=== PATIENT | male | born 1940 | race Caucasian/White ===

== ENCOUNTER → 2017-11-13 11:11 | Outpatient (POV) | payer MEDICARE, SELFPAY | PROVIDERS: Visit Provider Internal Medicine | DX: Z00.00 Encounter for general adult medical examination without abnormal findings (principal) ==

== ENCOUNTER → 2017-11-28 09:24 | Outpatient (CLI) | payer MEDICARE, SELFPAY ==
--- NOTE | 2017-11-28 09:28 | US_ITS ---
US aorta HISTORY: ITS.REASON: ABDOMINAL AORTIC ANEURYSM W/O RUPTURE COMPARISON: 10/17/2016 FINDINGS: Local visible dilatation once again noted involving the lower abdominal aorta measuring approximately 3.7 x 3.2 cm not significantly changed. Proximal common iliacs are unremarkable. IMPRESSION: No change 3.7 x 3.2 cm infrarenal abdominal aortic aneurysm
== END ==
PROVIDERS: PCP Internal Medicine; Visit Provider Internal Medicine
DX: I71.4 Abdominal aortic aneurysm, without rupture (principal); J44.9 Chronic obstructive pulmonary disease, unspecified; R06.02 Shortness of breath
CPT/HCPCS: 76770; 94010

== ENCOUNTER → 2017-12-17 09:20 | Outpatient (CLI) | payer MEDICARE, SELFPAY ==
[2017-12-17 16:49] LABS: Alanine Aminotransferase 31 U/L (12-78); Albumin Level 3.7 gm/dL (3.4-5.0); Albumin/Globulin Ratio 1.5 (1.1-1.8); Alkaline Phosphatase 83 U/L (46-116); Anion Gap 14.7 mEq/L (5-15); Bilirubin,Total 0.2 mg/dL (0.2-1.0); Blood Urea Nitrogen 23 mg/dL (7-18); Calcium 8.9 mg/dL (8.5-10.1); Carbon Dioxide 22 mmol/L (21.0-32.0); Chloride 107 mmol/L (98-107); Cholesterol 125 mg/dL (140-200); Creatinine,Serum 1.19 mg/dL (0.70-1.30); Estimated Glomerular Filt Rate 59 ml/min (>60); GFR (African American) 71 ML/MIN (>60); Globulin 2.5 gm/dl (1.3-3.2); Glucose 123 mg/dL (74-106); HDL Cholesterol 42 mg/dL (27-67); LDL Cholesterol 52 mg/dL (0-130); Sodium 139 mmol/L (136-145); Total Protein,Serum 6.2 gm/dL (6.4-8.2); Triglycerides 156 mg/dL (30-200); VLDL Cholesterol 31 mg/dL (0-40)
[2017-12-17 16:55] LABS: Aspartate Amino Transferase 26 U/L (15-37); Potassium 4.7 mmoL/L (3.5-5.1)
== END ==
PROVIDERS: Visit Provider Internal Medicine
DX: I25.10 Atherosclerotic heart disease of native coronary artery without angina pectoris (principal); I10 Essential (primary) hypertension; E11.59 Type 2 diabetes mellitus with other circulatory complications
CPT/HCPCS: 36415; 80053; 80061

== ENCOUNTER → 2018-05-21 09:51 | Outpatient (POV) | payer MEDICARE, SELFPAY | PROVIDERS: PCP Internal Medicine; Visit Provider Internal Medicine | DX: Z00.00 Encounter for general adult medical examination without abnormal findings (principal) ==

== ENCOUNTER → 2018-06-17 10:37 | Outpatient (CLI) | payer MEDICARE, SELFPAY ==
[2018-06-17 12:20] LABS: Alanine Aminotransferase 29 U/L (12-78); Albumin Level 4.1 gm/dL (3.4-5.0); Albumin/Globulin Ratio 1.5 (1.1-1.8); Alkaline Phosphatase 67 U/L (46-116); Bilirubin,Total 0.5 mg/dL (0.2-1.0); Blood Urea Nitrogen 31 mg/dL (7-18); Calcium 8.9 mg/dL (8.5-10.1); Carbon Dioxide 26 mmol/L (21.0-32.0); Chloride 107 mmol/L (98-107); Cholesterol 125 mg/dL (140-200); Creatinine,Serum 1.44 mg/dL (0.70-1.30); Estimated Glomerular Filt Rate 47 ml/min (>60); GFR (African American) 57 ML/MIN (>60); Globulin 2.7 gm/dl (1.3-3.2); Glucose 83 mg/dL (74-106); HDL Cholesterol 42 mg/dL (27-67); LDL Cholesterol 62 mg/dL (0-130); Prostate Specific Ag, Diagnost 1.71 ng/mL (0.0-4.0); Sodium 141 mmol/L (136-145); Total Protein,Serum 6.8 gm/dL (6.4-8.2); Triglycerides 106 mg/dL (30-200); VLDL Cholesterol 21 mg/dL (0-40)
[2018-06-17 12:21] LABS: Aspartate Amino Transferase 17 U/L (15-37)
[2018-06-18 13:21] LABS: Microalbumin, Urine 6.3 ug/mL (Not Estab.)
== END ==
PROVIDERS: Visit Provider Internal Medicine
DX: E11.59 Type 2 diabetes mellitus with other circulatory complications (principal); E11.42 Type 2 diabetes mellitus with diabetic polyneuropathy; I73.9 Peripheral vascular disease, unspecified; J44.9 Chronic obstructive pulmonary disease, unspecified; I10 Essential (primary) hypertension; E78.5 Hyperlipidemia, unspecified; R39.12 Poor urinary stream
CPT/HCPCS: 36415; 80053; 80061; 82043; 83036; 84153

== ENCOUNTER → 2018-11-25 08:51 | Outpatient (POV) | payer MEDICARE, SELFPAY | PROVIDERS: Visit Provider Internal Medicine | DX: Z00.00 Encounter for general adult medical examination without abnormal findings (principal) ==

== ENCOUNTER → 2018-12-27 09:14 | Outpatient (CLI) | payer MEDICARE, SELFPAY ==
--- NOTE | 2018-12-27 09:18 | US_ITS ---
US aorta HISTORY: Follow-up aneurysm ITS.REASON: ANEURYSM COMPARISON: 11/28/2017 FINDINGS: Study is somewhat limited due to overlying bowel gas. There is fusiform aneurysmal dilatation of the infrarenal abdominal aorta measuring up to 4 cm in AP dimension. The proximal common iliacs are unremarkable. IMPRESSION: No significant change lower, aortic aneurysm measuring 4 cm in AP dimension
== END ==
PROVIDERS: PCP Internal Medicine; Visit Provider Internal Medicine
DX: I71.4 Abdominal aortic aneurysm, without rupture (principal)
CPT/HCPCS: 76770

== ENCOUNTER → 2019-03-04 11:40 | Outpatient (POV) | payer MEDICARE, SELFPAY ==
--- NOTE | 2019-03-04 14:36 | XR_ITS ---
XR chest 2V HISTORY: ITS.REASON: DYSPNEA,OBSTRUCTIVE CHRONIC BRONCHITIS ORDERING PHYSICIAN: Aditya Maurice MD PATIENT AGE: 78 years COMPARISON: 01/05/2015 FINDINGS: The cardiomediastinal silhouette and pulmonary vascularity are within normal limits. Changes of COPD with hyperinflation and attenuation of the peripheral pulmonary vessels. Chronic changes are present in the lung bases.. Patchy infiltrate present in the lingula No acute bony abnormalities. IMPRESSION: COPD with infiltrate within the lingula
== END ==
LOC: SC 11:41 → RAD 14:28
PROVIDERS: PCP Internal Medicine; Visit Provider Internal Medicine
DX: R06.09 Other forms of dyspnea (principal); J44.9 Chronic obstructive pulmonary disease, unspecified
CPT/HCPCS: 71046

== ENCOUNTER → 2019-03-19 07:23 | Outpatient (CLI) | payer MEDICARE, SELFPAY ==
--- NOTE | 2019-03-19 07:23 | CA_ITS ---
PROCEDURE: 2-D M-mode and color Doppler study INDICATIONS FOR THE TEST: Chest pain+ COPD+ Heart Murmur Tobacco SmokingEX Palpitations Fatigue Syncope Edema Hypertension+Diabetes Mellitus+ Rheumatic Fever SOB+RAMOS+Obesity+Hyperlipidemia+ Family History HD Additional History CAD,AAA, STENTS, GERD PATIENT INFORMATION HEIGHT: 66 WEIGHT:204 GENDER: Male B/P:129/73 2-D/M-MODE INTERPRETATION: 2-D MEASUREMENTS OBSERVED VALUES IN CMS Right Ventricular Dimension (RVDd) 2.7 Interventricular Septum (Thickness)(IVsd) 1.4 Left Ventricular Internal Dimensions(LVIDd) 4.0 Left Ventricular Posterior Wall (Thickness)(LVPWd) 1.0 Aortic Root 3.6 Aortic Cusp Separation 1.9 Left Atrial Dimensions (LAD) 3.7 2D 1. Left atrium is mildly enlarged, left ventricle is normal size, mild concentric left ventricular hypertrophy, visually estimated ejection fraction 55% with no regional wall motion abnormality. 2. The right atrium and right ventricle are mildly enlarged with normal contractility. 3. The aortic valve is minimally thickened and calcified. 4. The mitral and tricuspid valve leaflets are minimally thickened 5. The pulmonic valve is poorly visualized. 6. No significant pericardial effusion noted. DOPPLER INTERROGATION: Doppler interrogation of the aortic, mitral and tricuspid valvular presence of mild mitral and tricuspid regurgitation, calculated right ventricular systolic pressure is 44 mmHg consistent with moderate pulmonary hypertension. Grade 1 diastolic dysfunction seen with tissue Doppler evidence of raised left atrial pressure. CONCLUSION: 1. Mildly enlarged left atrium, normal left ventricular size, mild concentric left ventricular hypertrophy, visually estimated ejection fraction 55% with no regional wall motion abnormality, grade 1 diastolic dysfunction seen with tissue Doppler evidence of raised left atrial pressure. 2. Mildly enlarged right ventricle with normal contractility. 3. Mild mitral and tricuspid regurgitation. Calculated right ventricular systolic pressure is 44 mmHg consistent with moderate pulmonary hypertension. 4. No significant pericardial effusion noted.
--- NOTE | 2019-03-19 07:23 | NM_ITS ---
History:Chest pain, SOB, HTN, DM Procedure: Patient received a 0.4 mg of intravenous Lexiscan, resting heart rate 66 bpm, resting blood pressure 130/71, with Lexiscan maximum heart rate achieve was 84 bpm which is less than 85 % of the maximum predicted heart rate and blood pressure was 138/71. WIth Lexiscan patient denied any complaint of chest pain. Electrocardiogram: Resting electrocardiogram showed sinus rhythm, with Lexiscan there is less than 1.5mm ST segment depression noted from the baseline EKG. The EKG portion of the Lexiscan Myoview is nondiagnostic. Cardias Stress and Resting SPECT images: Cardias Stress and Resting SPECT images were obtained using technetium 99m Myoview 32.4 mCi stress and 10.43 mCi at rest. Gated SPECT further analysis of segmental wall motion and calculation of ejection fraction also done. Cardiac stress and resting SPECT show uniform myocardial activity without segmental perfusion abnormality , the computer derived ejection fraction is over 65% with no regional wall motion abnormality, right ventricle is normal size and contractility. Conclusion: 1. The EKG portion of the Lexiscan Myoview is nondiagnostic. 2. No scintigraphic evidence of reversible ischemia seen, computer derived ejection fraction is over 65% with no regional wall motion abnormality. Right ventricle is normal size and contractility.. 3. Normal Lexiscan Myoview study.
--- NOTE | 2019-03-19 07:37 | HMH.ITSHM ---
Current Home Medications as stated by this patient Aditya Romero or counter sales representative. []VITAMIN B UMEDLICINIUM TRAZODONE SIMVASTATIN SAXAGLIPTIN METOPROLOL METFORMIN LOSARTAN GLIPIZIDE FLUTICASONE DOXAZOSIN ASA ALBUTEROL ACETAMINOPHEN
== END ==
PROVIDERS: Visit Provider Internal Medicine
DX: E11.69 Type 2 diabetes mellitus with other specified complication (principal); E78.5 Hyperlipidemia, unspecified; I10 Essential (primary) hypertension; I25.10 Atherosclerotic heart disease of native coronary artery without angina pectoris; I71.4 Abdominal aortic aneurysm, without rupture; K21.9 Gastro-esophageal reflux disease without esophagitis; R06.09 Other forms of dyspnea; R07.9 Chest pain, unspecified; Z79.4 Long term (current) use of insulin; Z95.5 Presence of coronary angioplasty implant and graft
CPT/HCPCS: 78452; 93017; 93306; A9502; J2785

== ENCOUNTER → 2019-03-20 08:03 | Outpatient (CLI) | payer MEDICARE, SELFPAY ==
--- NOTE | 2019-03-20 08:06 | US_ITS ---
US aorta HISTORY: Follow-up aortic aneurysm ITS.REASON: chest pain COMPARISON: 12/27/2018 FINDINGS: There is dilatation of the abdominal aorta measuring approximately 3.6 cm in AP dimension. This was similar compared to the previous exam. The right common iliac is slightly prominent at 1.6 cm. IMPRESSION: No change in the fusiform abdominal aortic aneurysm at approximately 3.6 cm
== END ==
PROVIDERS: PCP Internal Medicine; Visit Provider Internal Medicine
DX: E11.69 Type 2 diabetes mellitus with other specified complication (principal); E78.5 Hyperlipidemia, unspecified; I10 Essential (primary) hypertension; I25.10 Atherosclerotic heart disease of native coronary artery without angina pectoris; I71.4 Abdominal aortic aneurysm, without rupture; K21.9 Gastro-esophageal reflux disease without esophagitis; R06.09 Other forms of dyspnea; R07.9 Chest pain, unspecified; Z79.4 Long term (current) use of insulin
CPT/HCPCS: 76770

== ENCOUNTER → 2019-04-02 14:06 | Outpatient (CLI) | payer MEDICARE, SELFPAY ==
--- NOTE | 2019-04-02 14:07 | US_ITS ---
APPROVED REPORT Exam Type: Lower Extremity Segmental Pressures Loan Associate: Althea Lowery RVT Indications Claudication: Bilaterally CAD Risk Factors Hypertension CAD Hyperlipidemia Diabetes History of Smoking Pressures/Indices Right Indices Left Indices Brachial 112.00 mmHg Brachial 99.00 mmHg Low Thigh 112.00 mmHg 1.00 Low Thigh 125.00 mmHg 1.12 Calf 148.00 mmHg 1.32 Calf 132.00 mmHg 1.18 Ankle(PT) 124.00 mmHg 1.11 Ankle(PT) 128.00 mmHg 1.14 Ankle(DP) 127.00 mmHg 1.13 Ankle(DP) 144.00 mmHg 1.29 Digit 103.00 mmHg 0.92 Digit 80.00 mmHg 0.71 Findings RT CONY: 1.13 LT CONY:1.29 RT TBI:0.92 LT TBI:0.71 NORMAL PULSES JT NORMAL WAVEFORMS JT Electronically signed by : Lewis Jean Baptiste MD 04/03/2019 07:52:25
== END ==
PROVIDERS: PCP Internal Medicine; Visit Provider Urology
DX: I70.213 Atherosclerosis of native arteries of extremities with intermittent claudication, bilateral legs (principal)
CPT/HCPCS: 93923

== ENCOUNTER → 2019-04-16 10:56 | Outpatient (CLI) | payer MEDICARE, SELFPAY ==
[2019-04-16 12:08] LABS: Blood Urea Nitrogen 31 mg/dL (7-18); Calcium 9.2 mg/dL (8.5-10.1); Carbon Dioxide 28 mmol/L (21.0-32.0); Chloride 105 mmol/L (98-107); Creatinine,Serum 1.63 mg/dL (0.70-1.30); Estimated Glomerular Filt Rate 41 ml/min (>60); GFR (African American) 49 ML/MIN (>60); Glucose 188 mg/dL (74-106); Sodium 140 mmol/L (136-145)
== END ==
PROVIDERS: Visit Provider Urology
DX: I27.20 Pulmonary hypertension, unspecified (principal)
CPT/HCPCS: 36415; 80048

== ENCOUNTER → 2019-05-19 09:53 | Outpatient (CLI) | payer MEDICARE, SELFPAY ==
[2019-05-19 10:30] VITALS: PULSE 69; PULSE 73
== END ==
PROVIDERS: PCP Internal Medicine; Visit Provider Internal Medicine
DX: R06.09 Other forms of dyspnea (principal)
CPT/HCPCS: 94060; 94640; 94727; 94729

== ENCOUNTER 2019-06-12 15:00 | Outpatient (RCR) | payer MEDICARE, SELFPAY | END 2019-06-12 15:05 | disposition home or self-care (01) | LOC: PT 15:00 | PROVIDERS: PCP Internal Medicine; Visit Provider Orthopaedic Surgery | DX: M17.0 Bilateral primary osteoarthritis of knee (principal) | CPT/HCPCS: 97010; 97014; 97110; 97140; 97163; G0283 ==

== ENCOUNTER → 2019-06-30 08:29 | Outpatient (CLI) | payer MEDICARE, SELFPAY ==
[2019-06-30 10:38] LABS: Alanine Aminotransferase 26 U/L (12-78); Albumin Level 3.7 gm/dL (3.4-5.0); Albumin/Globulin Ratio 1.3 (1.1-1.8); Alkaline Phosphatase 72 U/L (46-116); Anion Gap 12.6 mEq/L (5-15); Aspartate Amino Transferase 19 U/L (15-37); Bilirubin,Total 0.5 mg/dL (0.2-1.0); Blood Urea Nitrogen 29 mg/dL (7-18); Calcium 8.7 mg/dL (8.5-10.1); Carbon Dioxide 29 mmol/L (21.0-32.0); Chloride 103 mmol/L (98-107); Chol/HDL Ratio 3.2 (1-3.5); Cholesterol 122 mg/dL (140-200); Creatinine,Serum 1.58 mg/dL (0.70-1.30); Estimated Glomerular Filt Rate 42 ml/min (>60); GFR (African American) 51 ML/MIN (>60); Globulin 2.8 gm/dl (1.3-3.2); Glucose 154 mg/dL (74-106); HDL Cholesterol 38 mg/dL (27-67); LDL Cholesterol 55 mg/dL (0-130); Potassium 4.6 mmoL/L (3.5-5.1); Sodium 140 mmol/L (136-145); Total Protein,Serum 6.5 gm/dL (6.4-8.2); Triglycerides 145 mg/dL (30-200); VLDL Cholesterol 29 mg/dL (0-40)
[2019-06-30 11:07] LABS: Hemoglobin A1C 8.3 % (0.0-7.0)
[2019-07-01 13:17] LABS: Microalbumin, Urine 4.6 ug/mL (Not Estab.)
== END ==
PROVIDERS: Visit Provider Internal Medicine
DX: E11.42 Type 2 diabetes mellitus with diabetic polyneuropathy (principal); E11.59 Type 2 diabetes mellitus with other circulatory complications; I10 Essential (primary) hypertension; E78.5 Hyperlipidemia, unspecified
CPT/HCPCS: 36415; 80053; 80061; 82043; 83036

== ENCOUNTER → 2020-01-12 08:15 | Outpatient (CLI) | payer MEDICARE, SELFPAY ==
[2020-01-12 11:36] LABS: Coronavirus 19 IgG Antibody Negative (Negative); Coronavirus 19 IgM Antibody Negative (Negative)
== END ==
PROVIDERS: Visit Provider Ophthalmology
DX: Z03.818 Encounter for observation for suspected exposure to other biological agents ruled out (principal)
CPT/HCPCS: 36415; 86328

== ENCOUNTER 2020-01-13 08:33 | Day surgery (SDC) | payer MEDICARE, SELFPAY ==
--- NOTE | 2020-01-07 11:05 | SUR.PREOP ---
01/07/2020 @ 1100--PHONE CALL MADE TO PATIENT. PATIENT UNDERSTANDS THAT LAB WORK AND COVID TESTING NEEDS TO BE COMPLETED BEFORE 1000 ON 01/12/2020. PATIENT UNDERSTANDS IF LAB WORK AND COVID-19 TESTS ARE NOT COMPLETED BY 12PM ON THAT DATE, THE SURGERY SCHEDULED WILL BE CANCELLED AND RESCHEDULED FOR ANOTHER TIME.
[2020-01-08 13:17] VITALS: BMI 31.9
[2020-01-13] VITALS (7 sets, daily range): BP systolic 133–152; BP diastolic 71–83; PULSE 61–70; RESP 18–22; TEMP 36.1–36.7; O2SAT 91–974
[2020-01-13 20:40] LABS: POC Glucose,Bedside 149 (70-110)
== END 2020-01-13 10:20 | disposition home or self-care (01) ==
LOC: OR 08:38
PROVIDERS: PCP Internal Medicine; Visit Provider Ophthalmology
DX: H25.813 Combined forms of age-related cataract, bilateral (principal); H02.839 Dermatochalasis of unspecified eye, unspecified eyelid; E11.9 Type 2 diabetes mellitus without complications; J44.9 Chronic obstructive pulmonary disease, unspecified; M19.90 Unspecified osteoarthritis, unspecified site; I10 Essential (primary) hypertension; E78.5 Hyperlipidemia, unspecified; Z79.82 Long term (current) use of aspirin; Z79.84 Long term (current) use of oral hypoglycemic drugs; Z79.51 Long term (current) use of inhaled steroids; Z79.899 Other long term (current) drug therapy
CPT/HCPCS: 66984; 82962; V2632

== ENCOUNTER 2020-05-12 17:52 | Emergency (ER) | payer MEDICARE, SELFPAY ==
[2020-05-12 17:52] VITALS: BP 161/79; PULSE 91; RESP 18; TEMP 36.8; O2SAT 97; BMI 35.2
[2020-05-12 18:01] VITALS: BP 123/85; PULSE 95; RESP 18; TEMP 36.8; O2SAT 93; BMI 35.4
--- NOTE | 2020-05-12 18:15 | HMH.EDUTC ---
[facility] [place] Disposition Clinical Impression: Shortness of breath, Blood in stool Disposition: Still a Patient Condition on Discharge: Fair Referrals: Humberto Salvador [Primary Care Provider] - Time of Disposition: 18:24 Medical Decision Making - Bautista Inquiry Pt receiving controlled substance: No Bautista was queried for this patient: No Vital Signs: 05/12/20 17:52 05/12/20 18:01 05/12/20 18:33 Temperature 98.2 F 98.2 F 99.0 F Temperature Source Oral Oral Oral Pulse Rate [Left Radial] 91 H 95 H 99 H Respiratory Rate 18 18 28 H Blood Pressure [Right Arm] 161/79 H 123/85 143/80 H Blood Pressure Mean [Right Arm] 106 97 101 Blood Pressure Source [Right Arm] Automatic Cuff Automatic Cuff Blood Pressure Position [Right Arm] Sitting Sitting 02 Sat by Pulse Oximetry 97 93 L 88 L Oxygen Delivery Method Room Air Room Air 05/12/20 19:45 Temperature Temperature Source Pulse Rate [Left Radial] 83 Respiratory Rate 18 Blood Pressure [Right Arm] 123/61 Blood Pressure Mean [Right Arm] 81 Blood Pressure Source [Right Arm] Blood Pressure Position [Right Arm] 02 Sat by Pulse Oximetry 94 L Oxygen Delivery Method Room Air - Lab Data Lab Results 05/12/20 18:40: WBC 6.2, RBC 4.63, Hgb 14.8, Hct 43.2, MCV 93.3, MCH 31.9 H, MCHC 34.2, RDW 13.7, Plt Count 131 L, MPV 8.1, Neut % (Auto) 71.3, Lymph % (Auto) 19.2, [place] % (Auto) 8.3, Eos % (Auto) 0.8, Baso % (Auto) 0.4, Neut # (Auto) 4.4, Lymph # (Auto) 1.2, [place] # (Auto) 0.5, Eos # (Auto) 0.1, Baso # (Auto) 0.0 05/12/20 18:40: Sodium 138, Potassium 4.4, Chloride 102, Carbon Dioxide 27, Anion Gap 13.4, BUN 19, Creatinine 1.10, Estimated Creat Clear 66, Estimated GFR 64, Est GFR ( Amer) 78, Glucose 308 H, Calcium 9.4, Total Bilirubin 0.4, AST 34, ALT 25, Alkaline Phosphatase 107, Troponin I < 0.01, Total Protein 7.1, Albumin 4.3, Globulin 2.8, Albumin/Globulin Ratio 1.5 05/12/20 18:40: Lactate 2.3 H 05/12/20 18:40: NT-Pro-B Natriuret Pep 49.8 05/12/20 18:40: SARS-CoV-2 IgG Ab (Rapid) Negative, SARS-CoV-2 IgM Ab (Rapid) Negative 05/12/20 19:10: Urine Color Yellow, Urine Appearance Clear, Urine pH 6.0, Ur Specific [place] 1.015, Urine Protein Negative, Urine Glucose (UA) 3+, Urine Ketones Negative, Urine Blood Negative, Urine Nitrate Negative, Urine Bilirubin Negative, Urine Urobilinogen 0.2, Ur Leukocyte Esterase Negative, Urine WBC 5-10, Ur Squamous Epith Cells 3-5, Urine Bacteria Trace Result diagrams: 05/12/20 18:40 05/12/20 18:40 Orders (Tests/Meds): ED MEDICATIONS Generic Name Dose Route Start Last Admin Trade Name Freq PRN Reason Stop Dose Admin Sodium Chloride 1,000 mls @ 999 mls/hr 05/12/20 20:15 05/12/20 20:15 Sod Chlor 0.9% 1000ml Bag IV 05/12/20 21:15 999 mls/hr .[id number] JAXSON Administration Discontinued Medications Generic Name Dose Route Start Last Admin Trade Name Freq PRN Reason Stop Dose Admin Albuterol/Ipratropium 3 ml 05/12/20 19:25 Duoneb 3ml Neb IH 05/12/20 19:26 ONCE ONE Ioversol 70 ml 05/12/20 20:19 05/12/20 20:21 Rad-Optiray 350 100ml Vial IV 05/12/20 20:20 70 ml ONCE ONE Administration Protocol Methylprednisolone Sodium Succinate 125 mg 05/12/20 19:25 05/12/20 19:35 Solu-Medrol 125mg/2ml Vial IV 05/12/20 19:26 125 mg ONCE ONE Administration Sodium Chloride 10 ml 05/12/20 20:19 05/12/20 20:21 Rad-Saline Flush 10ml Syringe IV 05/12/20 20:20 10 ml ONCE ONE Administration Sodium Chloride 40 ml 05/12/20 20:20 05/12/20 20:21 Rad-Ns 50ml Vial IV 05/12/20 20:21 40 ml ONCE ONE Administration ORDERS Category Date Time Status CT angio chest Stat Cat Scan 05/12/20 19:29 Taken XR chest 2V Stat Exams 05/12/20 18:29 Taken Troponin I Q3H Lab 05/12/20 21:30 Ordered Troponin I Q3H Lab 05/13/20 00:30 Ordered Blood Culture Stat Micro 05/12/20 18:40 Received ECG Request by /Loreto Stat Y 05/12/20 18:29 Ordered Medical Decision Narrative: Patient states that he cannot br
--- NOTE | 2020-05-12 18:29 | XR_ITS ---
PROCEDURE: XR CHEST 2V CLINICAL HISTORY: soa COMPARISON: CR CXR CHEST(2 VIEWS-NOT PORTABLE) from 01/05/[address] ANGIO CHEST from 05/12/2020 FINDINGS: The cardiomediastinal silhouette and pulmonary vascularity are within normal limits. There is vascular crowding in the lung bases with bibasilar atelectasis. Upper lobes are clear. Cannot exclude infiltrate in the left lung base. No acute bony abnormalities. IMPRESSION: Bibasilar atelectasis with possible left lower lobe infiltrate Dictated by: Lewis Jean Baptiste MD 05/13/2020 05:41 Lewis Jean Baptiste MD in [place] 05/13/2020 05:41
[2020-05-12 18:33] VITALS: BP 143/80; PULSE 99; RESP 28; TEMP 37.2; O2SAT 88; BMI 35.4
--- NOTE | 2020-05-12 18:39 | PC.NURSE ---
Pt stated that he has COPD but today he has been more short of breath than normal and he did not think he would make it through the night if he didn't come in . Pt also complains of blood in his stool and having black tarry stools. Pt states that his primary doctor told him that he needs to see a [employer]. Pt states that he has not followed up with Cardiology yet and is unsure why he needs to be seen.
[2020-05-12 18:54] LABS: Basophils % 0.4 % (0.1-2.0); Eosinophils # 0.1 K/mm3 (0.0-0.4); Eosinophils % 0.8 % (0.1-12.0); Hematocrit 43.2 % (42.0-52.0); Hemoglobin 14.8 g/dL (14.1-18.0); Lymphocytes # 1.2 K/mm3 (0.7-4.5); Lymphocytes % 19.2 % (10-50); Mean Corpuscular HGB Conc 34.2 g/dL (31.8-35.4); Mean Corpuscular Hemoglobin 31.9 pg (27.0-31.2); Mean Corpuscular Volume 93.3 fl (80-94); Mean Platelet Volume 8.1 fl (7.4-10.4); Monocytes # 0.5 K/mm3 (0.1-1.0); Monocytes % 8.3 % (1.7-9.3); Neutrophils # 4.4 K/mm3 (1.8-7.8); Neutrophils % 71.3 % (37.0-80.0); Platelet Count 131 K/mm3 (142-424); Red Blood Count 4.63 M/mm3 (4.60-6.20); Red Cell Distribution Width 13.7 % (11.5-17.5); White Blood Count 6.2 K/mm3 (4.8-10.8)
[2020-05-12 19:01] LABS: Lactic Acid 2.3 mmol/L (0.7-2.1)
[2020-05-12 19:09] LABS: Chloride 102 mmol/L (98-107); NT Pro Brain Natriuretic Pep. 49.8 pg/mL (0-450); Sodium 138 mmol/L (136-145)
[2020-05-12 19:10] LABS: Potassium 4.4 mmoL/L (3.5-5.1)
[2020-05-12 19:12] LABS: Alanine Aminotransferase 25 U/L (12-78); Albumin Level 4.3 g/dl (3.5-5.0); Albumin/Globulin Ratio 1.5 (1.1-1.8); Alkaline Phosphatase 107 U/L (38-126); Anion Gap 13.4 mEq/L (5-15); Aspartate Amino Transferase 34 U/L (17-59); Bilirubin,Total 0.4 mg/dl (0.2-1.3); Blood Urea Nitrogen 19 mg/dl (9-20); Carbon Dioxide 27 mmol/L (22.0-30.0); Creatinine Clearance Estimated 66 mL/min (50-200); Estimated Glomerular Filt Rate 64 ml/min (>60); GFR (African American) 78 ML/MIN (>60); Globulin 2.8 g/dL (1.3-3.2); Total Protein,Serum 7.1 g/dl (6.3-8.2)
[2020-05-12 19:13] LABS: Calcium 9.4 mg/dl (8.4-10.2); Glucose 308 mg/dl (74-100)
--- NOTE | 2020-05-12 19:17 | HMH.EDGENADL ---
ED Disposition Condition on Discharge: Good - Critical Care Critical Care Time: No <Richard Boyd - Last Filed: 05/12/20 20:04> <Brent English - Last Filed: 05/12/20 21:26> Clinical Impression: Shortness of breath, Blood in stool, Acute exacerbation of chronic obstructive airways disease Disposition: Left Against Medical Advice Instructions: DI for Chronic Obstructive Pulmonary Disease Additional Instructions: call pcp in am and recheck if needed Prescriptions: levoFLOXacin [Levaquin 500mg tab] 500 mg PO DAILY #7 tab [facility]: [facility] predniSONE [Prednisone 20mg Tab] 20 mg PO BID #10 tab [facility] Referrals: Humberto Salvador [Primary Care Provider] - Attestation: On 05/12/20, the high probability of a clinically significant, sudden or life threatening deterioration of the following system(s) required my full and direct attention, intervention and personal management. The time I documented below is in addition to time spent performing reported procedures but includes the following listed in this critical care notation. Medical Decision Making - Medical Records Medical records reviewed: Yes: I reviewed the patient's medical records. - Bautista Inquiry Pt receiving controlled substance: No - Lab Data Lab results reviewed: Yes: I reviewed the patient's lab results. Result diagrams: 05/12/20 18:40 05/12/20 18:40 - Radiology Data #1 Image(s): Chest Image Reviewed: Yes I reviewed the patient's radiology image <Richard Boyd - Last Filed: 05/12/20 20:04> - Lab Data Result diagrams: 05/12/20 18:40 05/12/20 18:40 - CT Data CT Scan: Chest Time Received: 21:[address] Reviewed: Yes: I have viewed the radiologist's interpretation Preliminary Findings: Abnormal (copd no pul emboli) <Brent English - Last Filed: 05/12/20 21:26> Vital Signs: 05/12/20 17:52 05/12/20 18:01 05/12/20 18:33 Temperature 98.2 F 98.2 F 99.0 F Temperature Source Oral Oral Oral Pulse Rate [Left Radial] 91 H 95 H 99 H Respiratory Rate 18 18 28 H Blood Pressure [Right Arm] 161/79 H 123/85 143/80 H Blood Pressure Mean [Right Arm] 106 97 101 Blood Pressure Source [Right Arm] Automatic Cuff Automatic Cuff Blood Pressure Position [Right Arm] Sitting Sitting 02 Sat by Pulse Oximetry 97 93 L 88 L Oxygen Delivery Method Room Air Room Air 05/12/20 19:45 Temperature Temperature Source Pulse Rate [Left Radial] 83 Respiratory Rate 18 Blood Pressure [Right Arm] 123/61 Blood Pressure Mean [Right Arm] 81 Blood Pressure Source [Right Arm] Blood Pressure Position [Right Arm] 02 Sat by Pulse Oximetry 94 L Oxygen Delivery Method Room Air - Lab Data Lab Results 05/12/20 18:40: WBC 6.2, RBC 4.63, Hgb 14.8, Hct 43.2, MCV 93.3, MCH 31.9 H, MCHC 34.2, RDW 13.7, Plt Count 131 L, MPV 8.1, Neut % (Auto) 71.3, Lymph % (Auto) 19.2, [place] % (Auto) 8.3, Eos % (Auto) 0.8, Baso % (Auto) 0.4, Neut # (Auto) 4.4, Lymph # (Auto) 1.2, [place] # (Auto) 0.5, Eos # (Auto) 0.1, Baso # (Auto) 0.0 05/12/20 18:40: Sodium 138, Potassium 4.4, Chloride 102, Carbon Dioxide 27, Anion Gap 13.4, BUN 19, Creatinine 1.10, Estimated Creat Clear 66, Estimated GFR 64, Est GFR ( Amer) 78, Glucose 308 H, Calcium 9.4, Total Bilirubin 0.4, AST 34, ALT 25, Alkaline Phosphatase 107, Troponin I < 0.01, Total Protein 7.1, Albumin 4.3, Globulin 2.8, Albumin/Globulin Ratio 1.5 05/12/20 18:40: Lactate 2.3 H 05/12/20 18:40: NT-Pro-B Natriuret Pep 49.8 05/12/20 18:40: SARS-CoV-2 IgG Ab (Rapid) Negative, SARS-CoV-2 IgM Ab (Rapid) Negative 05/12/20 19:10: Urine Color Yellow, Urine Appearance Clear, Urine pH 6.0, Ur Specific [place] 1.015, Urine Protein Negative, Urine Glucose (UA) 3+, Urine Ketones Negative, Urine Blood Negative, Urine Nitrate Negative, Urine Bilirubin Negative, Urine Urobilinogen 0.2, Ur Leukocyte Esterase Negative, Urine WBC 5-10, Ur Squamous Epith Cells 3-5, U
[2020-05-12 19:25] LABS: Troponin I < 0.01 ng/ml (0.00-0.034)
--- NOTE | 2020-05-12 19:29 | CT_ITS ---
PROCEDURE: CT ANGIO CHEST CLINCIAL INDICATION: pe Shortness of breath, former smoker, heart disease COMPARISON: CT ABDPELW/O CT ABD PELVIS W/O CONTRAST from 01/18/2015 TECHNIQUE: IV Contrast: 70ML OPTIRAY 350 Axial images obtained with sagittal and coronal reformats. All CT scans at the facility use one or more dose reduction, viz: automated exposure control, ma/kV adjustment per patient size (including targeted exams where dose is matched to indication, i.e. head), or iterative reconstruction technique. FINDINGS: HEART AND MEDIASTINAL STRUCTURES: There is sub optimal bolus timing. There is intense enhancement of the aorta with less than optimal enhancement of the pulmonary arteries. No large central pulmonary embolus is evident. Peripheral pulmonary artery evaluation is limited. No evidence of aortic aneurysm or dissection. There is mild ectasia and tortuosity of the descending thoracic aorta. Atheromatous changes are present involving the aorta. Coronary artery calcifications and/or stents are noted. There are mildly prominent mediastinal lymph nodes. LUNGS AND PLEURAL SPACES: Centrilobular emphysema with scattered areas of scarring. Parenchymal opacity is present in the right perihilar region may be due to an area of scarring or patchy infiltrate. Scarring is present in the right middle lobe somewhat more prominent when compared to the previous exam with some nodularity. This however is only slightly more prominent than when compared to 01/18/2015 and may represent fibrotic changes as opposed to developing nodule. Continued follow-up may confirm. There is mild diffuse bronchial thickening consistent with COPD. There are atelectatic changes in the left lower lobe with patchy ground-glass density suggesting infiltrate with atelectasis. No effusions. BONY STRUCTURES: Degenerative changes. There is a sclerotic focus in the central aspect of the body of the sternum on the right and may be due to a bone island. The UPPER ABDOMEN: There is an indeterminate lesion in the right lobe of the liver superiorly not readily apparent on 01/18/2015 containing fat and soft tissue density as well as a small focus of peripheral enhancement or calcification. This lesion measures 2.6 x 1.6 cm. Exophytic left renal cyst is noted. ADDITIONAL FINDINGS: No other significant abnormalities. IMPRESSION: 1. Suboptimal enhancement of the pulmonary arteries with no large central pulmonary embolus evident. Consider repeat exam if there is high clinical suspicion for pulmonary emboli. 2. Centrilobular emphysema/COPD with scattered areas of scarring 3. Mildly prominent mediastinal lymph nodes nonspecific. 4. Indeterminate liver lesion in fat. Differential diagnosis would include angio myelolipoma, lipoma, liposarcoma, or metastatic disease, or hepatic teratoma. Suggest follow-up to confirm stability. Dictated by: Lewis Jean Baptiste MD 05/13/2020 09:44 Lewis Jean Baptiste MD in [place] 05/13/2020 09:44
--- NOTE | 2020-05-12 19:39 | ECG_ITS ---
APPROVED REPORT Exam: Resting ECG HR:77 bpm ECG Measurements Heart Rate 77 AXES FL 170 P 51 QRSd 90 QRS 43 QT 378 T 53 QTc 427 <Conclusion> Sinus rhythm with premature atrial complexes Otherwise normal ECG Electronically signed by : Deric Turk, 05/15/2020 06:30:12
[2020-05-12 19:45] VITALS: BP 123/61; PULSE 83; RESP 18; O2SAT 94
[2020-05-12 19:54] LABS: Microscopic, Urine URINE MICROSCOPIC (MICROSCOPIC)
[2020-05-12 19:58] LABS: Appearance,Urine CLEAR (Clear); Bilirubin,Urine Negative (Negative); Blood, Urine Negative (Negative); Color,Urine YELLOW (Yellow); Glucose,Urine (UA) 3+ (Negative); Ketones,Urine Negative (Negative); Leukocyte Esterase,Urine Negative (Negative); Nitrate,Urine Negative (Negative); Protein,Urine Negative (Negative); Specific Gravity, Urine 1.015 (1.005-1.030); Urobilinogen,Urine 0.2 EU/dl (0.2)
[2020-05-12 20:08] LABS: Bacteria,Urine Trace /lpf
[2020-05-12 20:09] LABS: Coronavirus 19 IgG Antibody Negative (Negative); Coronavirus 19 IgM Antibody Negative (Negative)
--- NOTE | 2020-05-12 21:24 | PC.NURSE ---
MD wanted 2nd troponin drawn on pt. Advised pt this earlier, was getting ready to draw blood when pt came to the curtain and advised he was ready to leave and didn't want to stay for the 2nd troponin. Pt signed AMA form and left.
[2020-05-12 21:25] VITALS: BP 140/71; PULSE 84; RESP 16; TEMP 36.8; O2SAT 97
== END 2020-05-12 21:29 | disposition left against medical advice (07) ==
LOC: UTC 18:24 → ER 18:25
PROVIDERS: Emergency Provider Emergency Medicine; PCP Internal Medicine
DX: J44.1 Chronic obstructive pulmonary disease with (acute) exacerbation (principal); I10 Essential (primary) hypertension; E78.5 Hyperlipidemia, unspecified; E11.65 Type 2 diabetes mellitus with hyperglycemia; I71.4 Abdominal aortic aneurysm, without rupture; Z87.891 Personal history of nicotine dependence; Z95.5 Presence of coronary angioplasty implant and graft; Z79.899 Other long term (current) drug therapy; Z20.828 Contact with and (suspected) exposure to other viral communicable diseases
CPT/HCPCS: 71046; 71275; 80053; 81001; 83605; 83880; 84484; 85025; 86328; 87040; 93005; 96365; 96375; 99284; Q9967

== ENCOUNTER → 2020-05-28 09:05 | Outpatient (CLI) | payer MEDICARE, SELFPAY ==
--- NOTE | 2020-05-28 09:07 | US_ITS ---
PROCEDURE: US ABD. AORTA SCREENING CLINICAL INDICATION: aaa 3.6 cm Follow-up aneurysm COMPARISON: US AORTA US aorta from 03/20/2019 FINDINGS: There is aneurysmal dilatation of the mid abdominal aorta at 3.8 cm. Common iliacs have an unremarkable appearance. IMPRESSION: Fusiform dilatation of the abdominal aorta at 3.8 cm not significantly changed Dictated by: Lewis Jean Baptiste MD 05/28/2020 17:53 Lewis Jean Baptiste MD in [place] 05/28/2020 17:53
--- NOTE | 2020-05-28 09:07 | CA_ITS ---
APPROVED REPORT EXAM: Comprehensive 2D, Doppler, and color-flow Echocardiogram Machine Crater: Maddie Stubbs RDCS Ht: 5 ft 6 in Wt: 205lbs BSA: 2.02 BP: 119/64 mmHg Indications: SOA,CAD,RAMOS,OBESITY,COPD 2D Dimensions LVOT 1.77 cm (M/F) 1.5-2.5 M-Mode Dimensions RVDd 3.27 cm (0.9-2.6) LVDd 4.50 cm (3.5-5.7) LVDs 3.10 cm (3.5-5.7) IVSd 1.06 cm (0.6-1.1) PWd 1.02 cm (0.6-1.1) EF (Teich) 59.00% FS 31.10% EDV (Teich) 92.40 mL ESV (Teich) 37.90 mL LV Diastology E/A Ratio 0.57 Mitral Valve MV A Velocity 86.00 (40-130 cm/s) Left Ventricle Left atrium is mildly enlarged, left ventricle is normal size, mild concentric left ventricular hypertrophy, visually estimated ejection fraction 55% with no regional wall motion abnormality. Grade 1 diastolic dysfunction seen without tissue Doppler evidence of raise left atrial pressure. Right Ventricle Right atrium and right ventricle mildly enlarged with normal contractility. Aortic Valve Aortic valve is minimally thickened and fibrosed, there is no aortic stenosis or aortic insufficiency. Mitral Valve Mitral valve leaflets are minimally thickened, there is no mitral stenosis, there is mild mitral regurgitation. Tricuspid Valve Tricuspid valve is grossly normal, there is mild tricuspid regurgitation, tricuspid regurgitation jet velocity is inadequate for calculation of the right ventricular systolic pressure. Pulmonic Valve Pulmonic valve is poorly visualized. Great Vessels Aortic root is normal size. Pericardium No significant pericardial effusion noted. Conclusion 1. Mild biatrial enlargement, normal left ventricular size, mild concentric left ventricular hypertrophy, visually estimated ejection fraction 55% with no regional wall motion abnormality, grade 1 diastolic dysfunction seen without tissue Doppler evidence of raise left atrial pressure. 2. Mildly enlarged right ventricle with normal contractility. 3. Mild mitral and tricuspid regurgitation. 4. No significant pericardial effusion noted. Electronically signed by : Ulices Mandujano, 05/28/2020 12:05:51
== END ==
PROVIDERS: PCP Internal Medicine; Visit Provider Nurse Practitioner Family
DX: E78.5 Hyperlipidemia, unspecified (principal); I10 Essential (primary) hypertension; I25.10 Atherosclerotic heart disease of native coronary artery without angina pectoris; I27.20 Pulmonary hypertension, unspecified; I71.4 Abdominal aortic aneurysm, without rupture; J44.9 Chronic obstructive pulmonary disease, unspecified; K21.9 Gastro-esophageal reflux disease without esophagitis; R06.00 Dyspnea, unspecified; R60.9 Edema, unspecified; Z87.891 Personal history of nicotine dependence; Z95.5 Presence of coronary angioplasty implant and graft; E11.9 Type 2 diabetes mellitus without complications; Z79.84 Long term (current) use of oral hypoglycemic drugs
CPT/HCPCS: 76705; 93306

== ENCOUNTER → 2020-06-04 08:53 | Outpatient (CLI) | payer MEDICARE, SELFPAY ==
[2020-06-04 11:15] LABS: Chloride 102 mmol/L (98-107); Sodium 140 mmol/L (136-145)
[2020-06-04 11:16] LABS: Potassium 5.1 mmoL/L (3.5-5.1)
[2020-06-04 11:18] LABS: Blood Urea Nitrogen 24 mg/dl (9-20); Estimated Glomerular Filt Rate 49 ml/min (>60); GFR (African American) 59 ML/MIN (>60)
[2020-06-04 11:19] LABS: Anion Gap 14.1 mEq/L (5-15); Calcium 9.4 mg/dl (8.4-10.2); Carbon Dioxide 29 mmol/L (22.0-30.0); Glucose 149 mg/dl (74-100)
== END ==
PROVIDERS: Visit Provider Nurse Practitioner Family
DX: E11.9 Type 2 diabetes mellitus without complications (principal); E78.5 Hyperlipidemia, unspecified; I10 Essential (primary) hypertension; I25.10 Atherosclerotic heart disease of native coronary artery without angina pectoris; I27.20 Pulmonary hypertension, unspecified; I71.4 Abdominal aortic aneurysm, without rupture; J44.9 Chronic obstructive pulmonary disease, unspecified; K21.9 Gastro-esophageal reflux disease without esophagitis; R06.00 Dyspnea, unspecified; R60.9 Edema, unspecified; Z87.891 Personal history of nicotine dependence; Z95.5 Presence of coronary angioplasty implant and graft; Z79.84 Long term (current) use of oral hypoglycemic drugs
CPT/HCPCS: 36415; 80048

== ENCOUNTER 2020-06-11 10:26 | Emergency (ER) | payer MEDICARE, SELFPAY ==
[2020-06-11 11:25] VITALS: BP 145/70; PULSE 79; RESP 24; TEMP 36.9; O2SAT 89; BMI 34.9
--- NOTE | 2020-06-11 11:30 | HMH.EDUTC ---
[facility] Disposition Clinical Impression: COPD exacerbation, Nausea Disposition: Home, Self-Care Condition on Discharge: Good Instructions: DI for Chronic Obstructive Pulmonary Disease Prescriptions: Amoxicillin [Amoxicillin 875MG Tab] 875 mg PO Q12H #20 tab Transmission Status: Pending to [facility] Ondansetron [Ondansetron Odt 8mg Tab] 8 mg PO TID PRN 10 Days #30 tab PRN Reason: Nausea Transmission Status: Pending to [facility] predniSONE [Prednisone 20mg Tab] 20 mg PO BID 5 Days #10 tab Transmission Status: Pending to [facility] Referrals: Humberto Salvador [Primary Care Provider] - Time of Disposition: 11:41 Medical Decision Making - Medical Records Medical records reviewed: Yes: I reviewed the patient's medical records. - Bautista Inquiry Pt receiving controlled substance: No [facility] HPI - General Stated complaint: stomach pain,headache Time Seen by Provider: 06/11/20 11:30 - History of Present Illness Provider Complaint: Started feeling poorly last night. Headache, nausea, SOA. H/O COPD. States saw pulmonology yesterday. Should be on oxygen at home. Uses inhalers and nebs. Denies ear pain, sore throat, sinus pain, congestion. No vomiting or diarrhea. No fever. Onset (ago): day(s) (1) Location: chest, abdomen Relieving factors: none Exacerbating factors: none Associated symptoms: headaches, malaise, nausea/vomiting Treatments prior to arrival: none - Related Data Home Medications Medication Instructions Recorded Confirmed acetaminophen 300 mg-codeine 30 mg 1 tab PO DAILY PRN tab 11/25/18 01/13/20 tablet albuterol sulfate 90 mcg/actuation 1 puff INHALATION Q6H PRN 11/25/18 01/13/20 aerosol inhaler aspirin 81 mg tablet,delayed 81 mg PO DAILY 11/25/18 01/13/20 release doxazosin 4 mg tablet 4 mg PO DAILY 11/25/18 01/13/20 exenatide microspheres 2 mg 2 mg SQ WEEKLY each 11/25/18 01/13/20 subcutaneous extended release suspension fluticasone furoate 100 1 inh INHALATION DAILY 11/25/18 01/13/20 mcg-vilanterol 25 mcg/dose inhalation powder losartan 50 mg tablet 50 mg PO DAILY 11/25/18 01/13/20 saxagliptin 5 mg tablet 5 mg PO DAILY 11/25/18 01/13/20 simvastatin 10 mg tablet 10 mg PO QHS 11/25/18 01/13/20 trazodone 50 mg tablet 50 mg PO QHS PRN 11/25/18 01/13/20 umeclidinium 62.5 mcg/actuation 1 inh INHALATION DAILY 11/25/18 01/13/20 blister powder for inhalation vitamin B complex 1 tab PO DAILY 11/25/18 01/13/20 glipizide 10 mg tablet 5 mg PO DAILY tab 03/12/19 01/13/20 gabapentin 100 mg capsule 100 mg PO BID 03/31/20 multivitamin with minerals 1 tab PO DAILY 03/31/20 metformin 1,000 mg tablet 500 mg PO BID tab 05/24/20 Previous Rx's Medication Instructions Recorded furosemide 20 mg tablet 20 mg PO DAILY #30 tab 05/24/20 metoprolol succinate 25 mg 25 mg PO DAILY #30 tab 05/31/20 tablet,extended release 24 hr Amoxicillin [Amoxicillin 875MG 875 mg PO Q12H #20 tab 06/11/20 Tab] Ondansetron [Ondansetron Odt 8mg 8 mg PO TID PRN 10 Days #30 tab 06/11/20 Tab] predniSONE [Prednisone 20mg 20 mg PO BID 5 Days #10 tab 06/11/20 Tab] Allergies Allergy/AdvReac Type Severity Reaction Status Date / Time LISINOPRIL Allergy Severe ANGIONEUROTIC Uncoded 05/24/20 13:50 [facility] History - Hepatitis A Screen Attestation statement:: This patient has been screened for Hepatitis A risk factors. I have reviewed the patient's past medical history: Yes Medical History: Reports:: Chronic Obstructive Pulmonary Disease (COPD), Diabetes Mellitus Type 2, Hyperlipidemia, Hypertension, Kidney Stones Denies:: Cancer, Diabetes Mellitus Type 1, Internal Pacemaker, MRSA, Seizures Laterality Cases: Bilateral: Tonsillectomy Other Surgeries: Yes: No Previous Surgery, Cardiac Catheterization, Coronary Stent. No: Pacemaker Amputation: No Fractures: No - Social History Smoking Status: Former smoker #Yrs smoked (if former
[2020-06-11 11:47] VITALS: BP 145/70; PULSE 79; RESP 24; TEMP 36.9; O2SAT 89
== END 2020-06-11 11:49 | disposition home or self-care (01) ==
PROVIDERS: Emergency Provider Physician Assistant; PCP Internal Medicine
DX: J44.1 Chronic obstructive pulmonary disease with (acute) exacerbation (principal); I10 Essential (primary) hypertension; E78.5 Hyperlipidemia, unspecified; Z87.442 Personal history of urinary calculi; Z87.891 Personal history of nicotine dependence; Z88.8 Allergy status to other drugs, medicaments and biological substances; Z79.899 Other long term (current) drug therapy
CPT/HCPCS: G0463; 99201

== ENCOUNTER → 2020-09-16 09:59 | Outpatient (POV) | payer MEDICARE, SELFPAY | PROVIDERS: Visit Provider Audiologist | DX: Z00.00 Encounter for general adult medical examination without abnormal findings (principal) ==

== ENCOUNTER → 2020-09-21 10:00 | Outpatient (CLI) | payer MEDICARE, SELFPAY ==
[2020-09-21 10:35] VITALS: PULSE 72; PULSE 74
== END ==
PROVIDERS: PCP Internal Medicine; Visit Provider Internal Medicine Pulmonary Disease
DX: J43.9 Emphysema, unspecified (principal)
CPT/HCPCS: 94060; 94618; 94640

== ENCOUNTER → 2020-10-06 10:09 | Outpatient (CLI) | payer MEDICARE, SELFPAY | PROVIDERS: Visit Provider Internal Medicine | DX: E11.59 Type 2 diabetes mellitus with other circulatory complications (principal); E11.42 Type 2 diabetes mellitus with diabetic polyneuropathy; Z79.84 Long term (current) use of oral hypoglycemic drugs | CPT/HCPCS: 36415; 83036 ==

== ENCOUNTER → 2020-11-11 11:09 | Outpatient (POV) | payer MEDICARE, SELFPAY | PROVIDERS: Visit Provider Audiologist | DX: Z00.00 Encounter for general adult medical examination without abnormal findings (principal) ==

== ENCOUNTER → 2021-01-11 11:16 | Outpatient (POV) | payer MEDICARE, SELFPAY | PROVIDERS: Visit Provider Dermatology | DX: Z00.00 Encounter for general adult medical examination without abnormal findings (principal) ==

== ENCOUNTER 2021-06-20 10:52 | Emergency (ER) | payer MEDICARE, SELFPAY ==
[2021-06-20 10:53] VITALS: BP 141/63; PULSE 109; RESP 18; TEMP 36.6; O2SAT 100; BMI 31.8
--- NOTE | 2021-06-20 11:13 | HMH.EDGENADL ---
ED Disposition Clinical Impression: Back pain Qualifiers: Back pain location: low back pain Chronicity: acute Back pain laterality: left Sciatica presence: without sciatica Qualified Code(s): M54.50 - Low back pain, unspecified Disposition: Home, Self-Care Condition on Discharge: Good Additional Instructions: [id number] Tylenol/Motrin as needed for aches and pains. Follow with your PCP in 1 to 2 days return emergency department for worsening pain, fever, recurrent fall. Referrals: Humberto Salvador [Primary Care Provider] - 3 days Time of Disposition: - Critical Care Critical Care Time: No Attestation: On 06/20/21, the high probability of a clinically significant, sudden or life threatening deterioration of the following system(s) required my full and direct attention, intervention and personal management. The time I documented below is in addition to time spent performing reported procedures but includes the following listed in this critical care notation. Medical Decision Making - Medical Records Medical records reviewed: Yes: I reviewed the patient's medical records. - Bautista Inquiry Pt receiving controlled substance: No Vital Signs: 06/20/21 10:53 Temperature 97.9 F Temperature Source Oral Pulse Rate [Left Radial] 109 H Respiratory Rate 18 Blood Pressure [Right Arm] 141/63 H Blood Pressure Mean [Right Arm] 89 Blood Pressure Source [Right Arm] Automatic Cuff Blood Pressure Position [Right Arm] Sitting 02 Sat by Pulse Oximetry 100 Oxygen Delivery Method Room Air Medical Decision Narrative: 81yo M evaluated for left back pain. He states he came to the hospital this morning because he believed he had a follow-up appointment but it is actually tomorrow and he therefore decided to stop by the emergency department. Patient is in no acute distress on initial evaluation. His physical exam is unremarkable except for tenderness over the left quadratus lumborum. Patient states he would like to get an x-ray completed to improve his mobility. Patient has no bony tenderness on exam. Discussed with the patient that obtaining an x-ray would not improve his mobility. He likely has a pulled muscle in his back and muscles do not show up on x-rays. Patient voiced understanding. Patient ambulates without significant difficulty. Patient is noted to be satting 88% on room air. He reports he is supposed to wear oxygen at all times but only wears it when he feels he needs it. He states his current shortness of breath is at baseline or may be less than. General Adult HPI - General Chief complaint: PAIN Stated complaint: lt hip pain, 06/20 Time Seen by Provider: 06/20/21 11:00 Mode of Arrival: Ambulatory Limitations: No Limitations Description of Symptoms (Recalled from ER Triage Doc. by RN): c/o lower left back pain that started last night after he slid in the floor, denies any hip pain, states that the pain increases when he lifts his leg or moves - History of Present Illness HPI narrative: 81yo M presents the emergency department secondary to left back/flank pain. Patient reports he fell last night and was unable to get up off the floor. He was assisted up by EMS at approximately 4:00 in the morning. He slept in his recliner for the rest of the morning/night. He complains of decreased mobility this morning. His main complaint is that a hard time crossing his leg to put on his socks and shoes. Pain is only with movement of his left. He denies any pain in his pelvis, hips, buttocks. No head strike or LOC. No nausea/vomiting, no change in vision. - Related Data Home Medications Medication Instructions Recorded Confirmed acetaminophen 300 mg-codeine 30 mg 1 tab PO DAILY PRN tab 11/25/18 04/28/21 tablet aspirin 81 mg tablet,delayed 81 mg PO DAILY 11/25/18 04/28/21 release doxazosin 4 mg tablet 4 mg PO DAILY 11/25/18 04/28/21 exenatide microspheres 2 mg 2 mg SQ WEEKLY each 11/25/18 04/28/21 subcut
[2021-06-20 11:27] VITALS: BP 141/63; PULSE 100; RESP 20; TEMP 36.6; O2SAT 100
== END 2021-06-20 11:30 | disposition home or self-care (01) ==
PROVIDERS: Emergency Provider Family Medicine; PCP Internal Medicine
DX: M54.50 Low back pain, unspecified (principal); W01.0XXA Fall on same level from slipping, tripping and stumbling without subsequent striking against object, initial encounter; Y92.019 Unspecified place in single-family (private) house as the place of occurrence of the external cause; E11.9 Type 2 diabetes mellitus without complications; J44.9 Chronic obstructive pulmonary disease, unspecified; E78.5 Hyperlipidemia, unspecified; I10 Essential (primary) hypertension; Z87.442 Personal history of urinary calculi; Z87.891 Personal history of nicotine dependence; Z79.899 Other long term (current) drug therapy
CPT/HCPCS: 99281

== ENCOUNTER → 2021-07-08 14:25 | Outpatient (CLI) | payer MEDICARE, SELFPAY ==
[2021-07-08 14:44] LABS: Basophils # 0.1 K/mm3 (0-0.2); Basophils % 1.2 % (0.1-2.0); Eosinophils # 0.2 K/mm3 (0.0-0.4); Eosinophils % 3.6 % (0.1-12.0); Hematocrit 36.1 % (42.0-52.0); Hemoglobin 11.8 g/dL (14.1-18.0); Lymphocytes # 1.2 K/mm3 (0.7-4.5); Lymphocytes % 19.5 % (10-50); Mean Corpuscular HGB Conc 32.8 g/dL (31.8-35.4); Mean Corpuscular Hemoglobin 30.8 pg (27.0-31.2); Mean Platelet Volume 9.3 fl (7.4-10.4); Monocytes # 0.4 K/mm3 (0.1-1.0); Monocytes % 6.6 % (1.7-9.3); Neutrophils # 4.3 K/mm3 (1.8-7.8); Neutrophils % 69.1 % (37.0-80.0); Platelet Count 150 K/mm3 (142-424); Red Blood Count 3.84 M/mm3 (4.60-6.20); Red Cell Distribution Width 13.5 % (11.5-17.5); White Blood Count 6.2 K/mm3 (4.8-10.8)
[2021-07-08 15:13] LABS: Erythrocyte Sedimentation Rate 18 mm/hr (0-20)
[2021-07-08 16:04] LABS: Alanine Aminotransferase 13 U/L (12-78); Albumin Level 3.9 g/dl (3.5-5.0); Albumin/Globulin Ratio 1.8 (1.1-1.8); Alkaline Phosphatase 74 U/L (38-126); Aspartate Amino Transferase 18 U/L (17-59); Bilirubin,Total 0.3 mg/dl (0.2-1.3); Blood Urea Nitrogen 39 mg/dl (9-20); Calcium 8.8 mg/dl (8.4-10.2); Carbon Dioxide 31 mmol/L (22.0-30.0); Chloride 103 mmol/L (98-107); Chol/HDL Ratio 3.1 (1-3.5); Cholesterol 114 mg/dl (140-200); Estimated Glomerular Filt Rate 25 ml/min (>60); GFR (African American) 30 ML/MIN (>60); Globulin 2.2 g/dL (1.3-3.2); Glucose 135 mg/dl (74-100); HDL Cholesterol 37 mg/dl (40-60); Sodium 141 mmol/L (136-145); Total Protein,Serum 6.1 g/dl (6.3-8.2); Triglycerides 170 mg/dl (30-150); VLDL Cholesterol 34 mg/dL (0-40)
[2021-07-08 16:15] LABS: Direct LDL Cholesterol 49.68 mg/dL (100-129)
[2021-07-08 20:20] LABS: Hemoglobin A1C 7.3 % (4.0-6.0)
[2021-07-08 21:32] LABS: Microalbumin < 6.000 mg/L (0-16.7)
== END ==
PROVIDERS: Visit Provider Internal Medicine
DX: E11.59 Type 2 diabetes mellitus with other circulatory complications (principal); E11.42 Type 2 diabetes mellitus with diabetic polyneuropathy; I73.9 Peripheral vascular disease, unspecified; J44.9 Chronic obstructive pulmonary disease, unspecified
CPT/HCPCS: 80053; 80061; 82043; 83036; 85025; 85651

== ENCOUNTER → 2021-07-26 13:56 | Outpatient (CLI) | payer MEDICARE, SELFPAY ==
--- NOTE | 2021-07-26 13:59 | US_ITS ---
PROCEDURE: US URINARY BLADDER CLINICAL INDICATION: ELEVATED KIDNEY FUNCTION COMPARISON: No exams were available for comparison FINDINGS: Exam is limited as the patient was unable to obtain a full bladder. The full bladder volume is calculated to be 39 mL with a postvoid volume of 16 mL. No obvious mass. Ureteral jets are noted. IMPRESSION: Limited exam with incomplete bladder distension with mild postvoid residual Dictated by: Lewis Jean Baptiste MD 07/26/2021 17:04 Lewis Jean Baptiste MD in [facility] 07/26/2021 17:04
--- NOTE | 2021-07-26 13:59 | US_ITS ---
PROCEDURE: US KIDNEY CLINICAL INDICATION: ELEVATED KIDNEY FUNCTION COMPARISON: No exams were available for comparison FINDINGS: Right kidney is 11 x 5 6 cm. There is mild cortical thinning. 3 cm cyst is present along the lower pole benign-appearing. No hydronephrosis. Left kidney is 12 x 5 x 5 cm. There is cortical thinning. No hydronephrosis. 2 cm cyst is present in the mid polar region of the left kidney benign-appearing IMPRESSION: Bilateral renal cortical thinning. No hydronephrosis. Benign-appearing bilateral renal cysts Dictated by: Lewis Jean Baptiste MD 07/26/2021 17:06 Lewis Jean Baptiste MD in [facility] 07/26/2021 17:06
== END ==
PROVIDERS: PCP Internal Medicine; Visit Provider Internal Medicine
DX: R94.4 Abnormal results of kidney function studies (principal)
CPT/HCPCS: 76770; 76857

== ENCOUNTER → 2021-10-12 11:39 | Outpatient (CLI) | payer MEDICARE, SELFPAY | PROVIDERS: PCP Internal Medicine; Visit Provider Internal Medicine | DX: J44.9 Chronic obstructive pulmonary disease, unspecified (principal) | CPT/HCPCS: 94618 ==

== ENCOUNTER 2021-12-21 15:35 | Inpatient (IN) | payer MEDICARE, SELFPAY ==
[2021-12-21] VITALS (10 sets, daily range): BP systolic 94–126; BP diastolic 51–73; PULSE 92–103; RESP 18–36; TEMP 36.7–37.2; O2SAT 91–96; BMI 22.9
--- NOTE | 2021-12-21 16:02 | HMH.EDGENADL ---
ED Disposition Clinical Impression: Dehydration, Multiple fractures of ribs, bilateral, initial encounter for closed fracture Disposition: Admitted As Inpatient Condition on Discharge: Fair Referrals: Provider,Referral, [Primary Care Provider] - - Critical Care Critical Care Time: No Attestation: On 12/21/21, the high probability of a clinically significant, sudden or life threatening deterioration of the following system(s) required my full and direct attention, intervention and personal management. The time I documented below is in addition to time spent performing reported procedures but includes the following listed in this critical care notation. Medical Decision Making - Bautista Inquiry Pt receiving controlled substance: No Vital Signs: 12/21/21 15:36 12/21/21 16:31 Temperature 99.0 F Temperature Source Rectal Pulse Rate [Right Radial] 102 H Respiratory Rate 18 35 H Blood Pressure 102/56 L Blood Pressure [Right Arm] 111/51 L Blood Pressure Mean [Right Arm] 71 Blood Pressure Source [Right Arm] Automatic Cuff Blood Pressure Position [Right Arm] Sitting 02 Sat by Pulse Oximetry 96 Oxygen Delivery Method Room Air - Lab Data Lab Results 12/21/21 16:12: Urine Color Yellow, Urine Appearance Cloudy, Urine pH 5.5, Ur Specific [place] >= 1.030, Urine Protein 2+, Urine Glucose (UA) Negative, Urine Ketones Trace, Urine Blood Trace-l, Urine Nitrate Negative, Urine Bilirubin 2+ A, Urine Urobilinogen 0.2, Ur Leukocyte Esterase Negative, Urine RBC 3-5, Urine WBC None, Ur Squamous Epith Cells 3-5, Amorphous Sediment 1+, Urine Bacteria 2+ 12/21/21 16:51: WBC 11.2 H, RBC 4.74, Hgb 14.5, Hct 45.1, MCV 95.1 H, MCH 30.6, MCHC 32.2, RDW 14.7, Plt Count 170, MPV 9.9, Neut % (Auto) 89.6 H, Lymph % (Auto) 4.9 L, Charles % (Auto) 5.0, Eos % (Auto) 0.1, Baso % (Auto) 0.5, Neut # (Auto) 10.0 H, Lymph # (Auto) 0.6 L, Charles # (Auto) 0.6, Eos # (Auto) 0.0, Baso # (Auto) 0.1, Total Counted 100, Neutrophils % (Manual) 82 H, Lymphocytes % (Manual) 13, Monocytes % (Manual) 5, Platelet Estimate Normal, RBC Morphology Not Reportable, Hypochromasia 2+, Anisocytosis 1+ 12/21/21 16:51: Sodium 159 H*, Potassium 4.4, Chloride 123 H, Carbon Dioxide 19 L, Anion Gap 21.4 H, BUN 125 H*, Creatinine 3.70 H, Estimated Creat Clear 0, Estimated GFR 16 L*, Est GFR ( Amer) 19 L*, Glucose 328 H, Calcium 9.5, Total Bilirubin 1.1, AST 63 H, ALT 81 H, Alkaline Phosphatase 78, Total Creatine Kinase 1365 H*, Troponin I 0.10 H, Total Protein 6.3, Albumin 3.6, Globulin 2.7, Albumin/Globulin Ratio 1.3 12/21/21 16:51: Lactate 2.5 H 12/21/21 17:13: SARS-CoV-2 (PCR) Not detected, Influenza A Untype (PCR) Not detected, Influenza Type B (PCR) Not detected Result diagrams: 12/21/21 16:51 12/21/21 16:51 Orders (Tests/Meds): ED MEDICATIONS Generic Name Dose Route Start Last Admin Trade Name Freq PRN Reason Stop Dose Admin Lactated Ringer's 1,000 mls @ 999 mls/hr 12/21/21 17:45 12/21/21 17:49 Lactated Ringer's 1000 Ml Bag IV 12/21/21 18:45 999 mls/hr .Q1H1M JAXSON Administration ORDERS Category Date Time Status Troponin I Q3H Lab 12/21/21 19:58 Received Troponin I Q3H Lab 12/21/21 22:30 Ordered Blood Culture Stat Micro 12/21/21 16:51 Received Urine Culture Stat Micro 12/21/21 16:12 Received - Radiology Data #1 Image(s): Chest, Humerus, Pelvis Image Reviewed: Yes I have reviewed radiologist's interpretation PROCEDURE INFORMATION: Exam: XR Pelvis Exam date and time: 12/21/2021 4:33 PM Age: 81 years old Clinical indication: Injury or trauma; Fall; Blunt trauma (contusions or hematomas); Bilateral; Hip; Additional info: Found on floor TECHNIQUE: Imaging protocol: XR pelvis. Views: 1 or 2 view. COMPARISON: ABDPELW/O CT ABD PELVIS W/O CONTRAST 01/18/2015 10:14 PM FINDINGS: Bones/joints: Generalized osteopenia. No evidence of acute osseous injury. Soft tissues: Unremarkable. Vasculature: Incomplete vi
--- NOTE | 2021-12-21 16:12 | CT_ITS ---
PROCEDURE INFORMATION: Exam: CT Thoracic Spine Without Contrast Exam date and time: 12/21/2021 5:54 PM Age: 81 years old Clinical indication: Injury or trauma; Fall; Blunt trauma (contusions or hematomas); Additional info: Fall, confusion TECHNIQUE: Imaging protocol: Computed tomography images of the thoracic spine without contrast. Radiation optimization: All CT scans at this facility use at least one of these dose optimization techniques: automated exposure control; mA and/or kV adjustment per patient size (includes targeted exams where dose is matched to clinical indication); or iterative reconstruction. COMPARISON: CT ANGIO CHEST 05/12/2020 7:57 PM FINDINGS: Vertebrae: No acute fracture. Normal alignment. Discs/Spinal canal/Neural foramina: No significant disc protrusion. No severe spinal canal stenosis. No significant neural foraminal narrowing. Soft tissues: Unremarkable. Other findings: Please see separate report for CT chest. IMPRESSION: No acute fracture or malalignment of the thoracic spine.
--- NOTE | 2021-12-21 16:12 | CT_ITS ---
PROCEDURE INFORMATION: Exam: CT Abdomen And Pelvis Without Contrast Exam date and time: 12/21/2021 5:59 PM Age: 81 years old Clinical indication: Injury or trauma; Fall; Blunt; Generalized; Additional info: Fall, confusion TECHNIQUE: Imaging protocol: Computed tomography of the abdomen and pelvis without contrast. Radiation optimization: All CT scans at this facility use at least one of these dose optimization techniques: automated exposure control; mA and/or kV adjustment per patient size (includes targeted exams where dose is matched to clinical indication); or iterative reconstruction. COMPARISON: ABDPELW/O CT ABD PELVIS W/O CONTRAST 01/18/2015 10:14 PM FINDINGS: Tubes, catheters and devices: Urinary bladder is catheterized. Lungs: Mild scarring and atelectasis in the lower lungs. There is a 12 mm right middle lobe pulmonary nodule on image 12 series 3, previously 14 mm. In the absence of chemoradiation therapy, the decrease in size favors a benign etiology. Heart: Coronary artery calcifications. Mitral and aortic valve calcifications. Liver: Hepatic steatosis. Gallbladder and bile ducts: Normal. No calcified stones. No ductal dilation. Pancreas: Normal. No ductal dilation. Spleen: Normal. No splenomegaly. Adrenal glands: Normal. No mass. Kidneys and ureters: Nonobstructing left nephrolithiasis. Low attenuation renal lesions measuring up to 2.9 cm in diameter are incompletely characterized, but are likely cysts. No followup imaging is warranted. Stomach and bowel: Mild sigmoid diverticulosis without diverticulitis. Mildly dilated segments of proximal small bowel is likely due to peristalsis. Slow motility/mild ileus is also possible in the appropriate clinical setting. Appendix: Unremarkable appendix. Intraperitoneal space: Unremarkable. No free air. No significant fluid collection. Vasculature: Unruptured infrarenal abdominal aortic aneurysm measuring 3.5 cm. Advanced atherosclerotic disease of the arteries. Lymph nodes: Unremarkable. No enlarged lymph nodes. Urinary bladder: Unremarkable as visualized. Reproductive: Unremarkable as visualized. Bones/joints: Right 7th and 8th rib fractures are most likely acute. Left 8th and 9th rib fractures are age-indeterminate. Soft tissues: Tiny fat containing umbilical hernia. Other findings: Stigmata of old granulomatous disease. IMPRESSION: 1. Right 7th and 8th rib fractures are most likely acute. 2. Left 8th and 9th rib fractures are age-indeterminate. Please correlate with point tenderness. 3. Unruptured infrarenal abdominal aortic aneurysm measuring 3.5 cm. 4. Nonobstructing left nephrolithiasis. 5. Hepatic steatosis. 6. There is a 12 mm right middle lobe pulmonary nodule on image 12 series 3, previously 14 mm. In the absence of chemoradiation therapy, the decrease in size favors a benign etiology. Consider follow-up imaging as clinically warranted. COMMENTS: Consistent with the [employer]'s Incidental Findings Committee white paper (J Am Aroldo Radiol 2018): Any incidental renal lesion less than 1 cm or classified as too small to characterize, or any incidental cystic renal lesion characterized as simple-appearing, is likely benign. No follow-up imaging is recommended for these lesions per consensus recommendations based on imaging criteria.
--- NOTE | 2021-12-21 16:12 | XR_ITS ---
PROCEDURE INFORMATION: Exam: XR Chest Exam date and time: 12/21/2021 4:33 PM Age: 81 years old Clinical indication: Injury or trauma; Fall; Blunt trauma (contusions or hematomas) TECHNIQUE: Imaging protocol: XR of the chest. Views: 1 view. COMPARISON: CR XR CHEST 2V 05/12/2020 6:53 PM FINDINGS: Lungs: Bibasilar regions of subsegmental atelectasis again demonstrated. No evidence of acute cardiopulmonary disease. Pleural spaces: Unremarkable. No pleural effusion. No pneumothorax. Heart/Mediastinum: Unremarkable. No cardiomegaly. Bones/joints: Unremarkable. IMPRESSION: 1. No evidence of acute cardiopulmonary disease. 2. Bibasilar regions of subsegmental atelectasis. Findings stable.
--- NOTE | 2021-12-21 16:12 | CT_ITS ---
PROCEDURE INFORMATION: Exam: CT Lumbar Spine Without Contrast Exam date and time: 12/21/2021 5:57 PM Age: 81 years old Clinical indication: Injury or trauma; Fall; Blunt trauma (contusions or hematomas); Additional info: Fall, confusion TECHNIQUE: Imaging protocol: Computed tomography images of the lumbar spine without contrast. Radiation optimization: All CT scans at this facility use at least one of these dose optimization techniques: automated exposure control; mA and/or kV adjustment per patient size (includes targeted exams where dose is matched to clinical indication); or iterative reconstruction. COMPARISON: CT THORACIC SPINE WO CON 12/21/2021 5:54 PM FINDINGS: Vertebrae: No acute fracture. Normal alignment. Discs/Spinal canal/Neural foramina: Degenerative changes at L2-L3, L3-L4, and L4-L5 produce severe spinal stenosis. Soft tissues: Unremarkable. Other findings: Please see separate report for abdomen/pelvis. IMPRESSION: 1. No acute fracture or malalignment of the lumbar spine. 2. Degenerative changes at L2-L3, L3-L4, and L4-L5 produce severe spinal stenosis.
--- NOTE | 2021-12-21 16:12 | CT_ITS ---
PROCEDURE INFORMATION: Exam: CT Head Without Contrast Exam date and time: 12/21/2021 5:51 PM Age: 81 years old Clinical indication: Injury or trauma; Fall; Blunt trauma (contusions or hematomas); Additional info: Fall, confusion TECHNIQUE: Imaging protocol: Computed tomography of the head without contrast. Radiation optimization: All CT scans at this facility use at least one of these dose optimization techniques: automated exposure control; mA and/or kV adjustment per patient size (includes targeted exams where dose is matched to clinical indication); or iterative reconstruction. COMPARISON: [facility] CT HEAD W/O CONTRAST 02/07/2015 7:02 PM FINDINGS: Brain: Mild-moderate prominence of the cortical sulci most pronounced in the frontal lobe. Findings have progressed since the previous study and are compatible with intracerebral volume loss. Scattered regions of chronic lacunar infarction demonstrated within the midbrain. No evidence of acute intracranial or extra-axial hemorrhage. Patchy as well as confluent regions of diminished density are present in the periventricular white matter tracts. Similar findings demonstrated on the previous study and are compatible small vessel disease related to microangiopathy. Cerebral ventricles: There is mild-moderate prominence of the lateral ventricles including the temporal horns. Findings have progressed slightly compared with the previous study. Paranasal sinuses: Visualized sinuses are unremarkable. No fluid levels. Mastoid air cells: Visualized mastoid air cells are well aerated. Bones/joints: Unremarkable. No acute fracture. Soft tissues: Unremarkable. IMPRESSION: 1. No evidence of acute intracranial or extra-axial hemorrhage. 2. Mild-moderate intracerebral volume loss. Findings have progressed since 02/01/2015. 3. 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
--- NOTE | 2021-12-21 16:12 | CT_ITS ---
PROCEDURE INFORMATION: Exam: CT Cervical Spine Without Contrast Exam date and time: 12/21/2021 5:51 PM Age: 81 years old Clinical indication: Injury or trauma; Fall; Blunt trauma; Additional info: Fall, confusion TECHNIQUE: Imaging protocol: Computed tomography images of the cervical spine without contrast. Radiation optimization: All CT scans at this facility use at least one of these dose optimization techniques: automated exposure control; mA and/or kV adjustment per patient size (includes targeted exams where dose is matched to clinical indication); or iterative reconstruction. COMPARISON: CT ANGIO CHEST 05/12/2020 7:57 PM FINDINGS: Bones/joints: There is loss and reversal of the cervical lordotic curvature. The apex is present at C6-7. Mild scoliosis of the cervical spine convexity to the right. Multilevel advanced hypertrophic facet changes are demonstrated at C2-3 through C5-6. Discs/Spinal canal/Neural foramina: Multilevel disc degeneration most pronounced at C6-7 and C7-T1. Lungs: Lung apices are normal. Soft tissues: Unremarkable. Other findings: No evidence of acute osseous injury. IMPRESSION: 1. No evidence of acute osseous injury. 2. Cervical spondylosis with multilevel disc degeneration and facet hypertrophy as described above.
[2021-12-21 16:21] LABS: Microscopic, Urine URINE MICROSCOPIC (MICROSCOPIC)
[2021-12-21 16:27] LABS: Appearance,Urine CLOUDY (Clear); Blood, Urine TRACE-L (Negative); Color,Urine YELLOW (Yellow); Glucose,Urine (UA) Negative (Negative); Ketones,Urine TRACE (Negative); Leukocyte Esterase,Urine Negative (Negative); Nitrate,Urine Negative (Negative); PH,Urine 5.5 (5.0-8.5); Protein,Urine 2+ (Negative); Specific Gravity, Urine >= 1.030 (1.005-1.030); Urobilinogen,Urine 0.2 EU/dl (0.2)
--- NOTE | 2021-12-21 16:27 | XR_ITS ---
PROCEDURE INFORMATION: Exam: XR Right Humerus Exam date and time: 12/21/2021 4:33 PM Age: 81 years old Clinical indication: Injury or trauma; Fall; Blunt trauma (contusions or hematomas); Arm, upper; Right; Additional info: Bruising of RT arm, PT found on floor, unkown HX due to PT condition TECHNIQUE: Imaging protocol: XR Right humerus. Views: 2 or more views. COMPARISON: [id number] 10/04/2015 10:00 AM FINDINGS: Bones/joints: Incomplete visualization of nondisplaced anterolateral fracture at the approximate level of the 5th right rib. Findings compatible with calcific tendinitis. Soft tissues: Faint soft tissue calcification in the expected region of the rotator cuff. IMPRESSION: 1. Incomplete visualization of nondisplaced anterolateral fracture at the approximate level of the 5th right rib. 2. Findings compatible with calcific tendinitis.
--- NOTE | 2021-12-21 16:27 | XR_ITS ---
PROCEDURE INFORMATION: Exam: XR Pelvis Exam date and time: 12/21/2021 4:33 PM Age: 81 years old Clinical indication: Injury or trauma; Fall; Blunt trauma (contusions or hematomas); Bilateral; Hip; Additional info: Found on floor TECHNIQUE: Imaging protocol: XR pelvis. Views: 1 or 2 view. COMPARISON: ABDPELW/O CT ABD PELVIS W/O CONTRAST 01/18/2015 10:14 PM FINDINGS: Bones/joints: Generalized osteopenia. No evidence of acute osseous injury. Soft tissues: Unremarkable. Vasculature: Incomplete visualization of aneurysmal dilatation of the abdominal aorta which has been described on previous reports measuring approximately 3.8 cm in maximum dimensions. IMPRESSION: 1. No evidence of acute osseous injury. 2. Incomplete visualization of previously demonstrated abdominal aortic aneurysm measuring approximately 3.8 cm in maximum dimensions.
[2021-12-21 16:45] LABS: Bilirubin,Urine 2+ (Negative)
[2021-12-21 16:46] LABS: Amorphous Sediment,Urine 1+ /lpf; Bacteria,Urine 2+ /lpf
[2021-12-21 17:01] LABS: Basophils # 0.1 K/mm3 (0-0.2); Basophils % 0.5 % (0.1-2.0); Eosinophils % 0.1 % (0.1-12.0); Hematocrit 45.1 % (42.0-52.0); Hemoglobin 14.5 g/dL (14.1-18.0); Lymphocytes # 0.6 K/mm3 (0.7-4.5); Lymphocytes % 4.9 % (10-50); Mean Corpuscular HGB Conc 32.2 g/dL (31.8-35.4); Mean Corpuscular Hemoglobin 30.6 pg (27.0-31.2); Mean Corpuscular Volume 95.1 fl (80-94); Mean Platelet Volume 9.9 fl (7.4-10.4); Monocytes # 0.6 K/mm3 (0.1-1.0); Neutrophils % 89.6 % (37.0-80.0); Platelet Count 170 K/mm3 (142-424); Red Blood Count 4.74 M/mm3 (4.60-6.20); Red Cell Distribution Width 14.7 % (11.5-17.5); White Blood Count 11.2 K/mm3 (4.8-10.8)
[2021-12-21 17:06] LABS: Chloride 123 mmol/L (98-107)
[2021-12-21 17:07] LABS: Potassium 4.4 mmoL/L (3.5-5.1)
[2021-12-21 17:09] LABS: Alanine Aminotransferase 81 U/L (12-78); Aspartate Amino Transferase 63 U/L (17-59); Creatinine Clearance Estimated 0 mL/min (50-200); Estimated Glomerular Filt Rate 16 ml/min (>60); GFR (African American) 19 ML/MIN (>60)
[2021-12-21 17:10] LABS: Albumin Level 3.6 g/dl (3.5-5.0); Albumin/Globulin Ratio 1.3 (1.1-1.8); Alkaline Phosphatase 78 U/L (38-126); Anion Gap 21.4 mEq/L (5-15); Bilirubin,Total 1.1 mg/dl (0.2-1.3); Calcium 9.5 mg/dl (8.4-10.2); Carbon Dioxide 19 mmol/L (22.0-30.0); Creatine Kinase 1365 U/L (55-170); Globulin 2.7 g/dL (1.3-3.2); Glucose 328 mg/dl (74-100); Total Protein,Serum 6.3 g/dl (6.3-8.2)
--- NOTE | 2021-12-21 17:14 | PC.NURSE ---
COVID swab sent to lab at this time
[2021-12-21 17:15] LABS: Lactic Acid 2.5 mmol/L (0.7-2.1)
[2021-12-21 17:16] LABS: Coronavirus 19, PCR Not Detected (NotDetected); Influenza A, PCR Not Detected (NotDetected); Influenza B, PCR Not Detected (NotDetected)
[2021-12-21 17:29] LABS: Blood Urea Nitrogen 125 mg/dl (9-20); Sodium 159 mmol/L (136-145)
--- NOTE | 2021-12-21 17:30 | PC.NURSE ---
notified ER MD of critical Sodium and BUN ER MD gave verbal order for 1 L IVF bolus of LR
[2021-12-21 17:31] LABS: MANUAL DIFFERENTIAL MANUAL DIFFERENTIAL (MANUAL DIFF)
--- NOTE | 2021-12-21 18:09 | CT_ITS ---
PROCEDURE INFORMATION: Exam: CT Chest Without Contrast; Diagnostic Exam date and time: 12/21/2021 6:21 PM Age: 81 years old Clinical indication: Injury or trauma; Fall; Blunt trauma (contusions or hematomas); Additional info: Rib fractures, fall TECHNIQUE: Imaging protocol: Diagnostic computed tomography of the chest without contrast. Radiation optimization: All CT scans at this facility use at least one of these dose optimization techniques: automated exposure control; mA and/or kV adjustment per patient size (includes targeted exams where dose is matched to clinical indication); or iterative reconstruction. COMPARISON: CT ANGIO CHEST 05/12/2020 7:57 PM FINDINGS: Lungs: Scattered regions of cystic change predominantly in the lung apices. No evidence of a pneumothorax. Superimposed subtle ground-glass regions of opacification demonstrated anteriorly in the left upper lobe. Minimal bibasilar regions of parenchymal scarring. Pleural spaces: No pleural effusions. Heart: See Vasculature finding. Lymph nodes: Nonspecific lymph nodes in the pretracheal, subcarinal space as well as the AP window measuring up to 10 mm. Calcified right perihilar lymph nodes also demonstrated. Vasculature: Regions of atherosclerotic vascular calcification involving the aortic arch. Coronary artery calcification also demonstrated. Liver: Evidence of prior hepatic and splenic granulomatous disease. Bones/joints: Incomplete visualization of acute fracture left posterolateral 11th rib (series 4, image number 84). Fracture of the anterolateral left 7th rib as well as the right anterolateral 4th rib is demonstrated. There is no evidence of a compression fracture deformity. Mild spondylitic changes demonstrated within the thoracic spine. Soft tissues: Unremarkable. IMPRESSION: 1. Multiple nondisplaced fractures left posterolateral 11th, anterolateral 7th as well as right anterolateral 4th ribs. 2. No evidence of pneumothorax. 3. Thoracic spondylosis with multilevel disc degeneration. 4. Evidence of prior granulomatous disease . 5. Findings compatible with mild changes of centrilobular emphysema.
[2021-12-21 18:49] LABS: Anisocytosis 1+; Hypochromasia 2+; Lymphocytes % 13 % (10-50); Monocytes % 5 % (2-9); Neutrophils % 82 % (42-76); Platelet Estimate Normal; Total Cells Counted 100
--- NOTE | 2021-12-21 18:53 | ECG_ITS ---
APPROVED REPORT Exam: Resting ECG HR:102 bpm ECG Measurements Heart Rate 102 AXES WA 138 P 79 QRSd 93 QRS 76 QT 345 T 66 QTc 404 Conclusion SINUS TACHYCARDIA WITH FREQUENT SUPRAVENTRICULAR PREMATURE COMPLEXES INDETERMINATE AXIS INCOMPLETE RIGHT BUNDLE BRANCH BLOCK [90+ ms QRS DURATION, TERMINAL R IN V1/V2, 40+ ms S IN I/aVL/V4/V5/V6] ABNORMAL RHYTHM ECG UNCONFIRMED REPORT Electronically signed by : Deric Turk MD 12/22/2021 10:18:21
--- NOTE | 2021-12-21 19:30 | PC.NURSE ---
Pt readjusted in bed, brief changed, and powder applied to red areas.
--- NOTE | 2021-12-21 19:43 | PC.NURSE ---
Dr. Burke ivey
--- NOTE | 2021-12-21 20:04 | PC.NURSE ---
speaking with DR. Turk
--- NOTE | 2021-12-21 20:08 | PC.NURSE ---
PT resting in bed. Still altered, no needs
--- NOTE | 2021-12-21 20:39 | PC.NURSE ---
Report called to [facility]. Question related to sepsis discussed with Dr. Boyd, stated did not have a source.
[2021-12-21 20:43] LABS: Reflex Lactic Add Lactic Reflex
[2021-12-21 21:15] LABS: Lactic Acid Follow Up (RFLX 1) 1.8 mmol/L (0.7-2.1)
--- NOTE | 2021-12-21 21:37 | PC.NURSE ---
Patient up to floor via stretcher @ 21:33 by ED staff.
[2021-12-21 23:22] LABS: Troponin I 0.09 ng/ml (0.00-0.034)
[2021-12-22] VITALS (8 sets, daily range): BP systolic 97–149; BP diastolic 51–70; PULSE 90–100; RESP 20–26; TEMP 36.4–36.9; O2SAT 91–97
[2021-12-22 01:13] LABS: POC Glucose,Bedside 290 (70-110)
--- NOTE | 2021-12-22 04:56 | PC.NURSE ---
Pt responds only by saying no or moaning. Will not follow any commands. VSS. Pt remains on 2L O2 NC. Has multiple bruising to extremities, hips and abdomen. Rash noted to abdomen. Pt is extremely excoriated to heath area. Mouth is dry. Pt refuses to allow staff to perform oral care. Pt turned and repositioned. Pain medication administered. Pictures of wounds and bruising in chart. Family at bedside and is requesting rehab and/or possible placement.
[2021-12-22 06:33] LABS: Anion Gap 16.2 mEq/L (5-15); Calcium 8.6 mg/dl (8.4-10.2); Carbon Dioxide 22 mmol/L (22.0-30.0); Chloride 124 mmol/L (98-107); Creatinine Clearance Estimated 16 mL/min (50-200); Estimated Glomerular Filt Rate 15 ml/min (>60); GFR (African American) 18 ML/MIN (>60); Glucose 310 mg/dl (74-100); Potassium 4.2 mmoL/L (3.5-5.1)
[2021-12-22 06:42] LABS: Sodium 158 mmol/L (136-145)
[2021-12-22 06:43] LABS: Blood Urea Nitrogen 141 mg/dl (9-20)
--- NOTE | 2021-12-22 06:58 | PC.NURSE ---
notified of critical lab values Na 158, BUN 141.
--- NOTE | 2021-12-22 07:25 | HMH.PHAVTE ---
[facility] Pharmacy VTE Monitoring - Patient Demographics Admission date: 12/21/21 Report Date: 12/22/21 Time: 07:25 Allergies/Adverse Reactions: Patient Allergies lisinopril Allergy (Verified 07/28/21 11:40) NA Height: 1.85 m Weight: 78.517 kg Patient Problems: Current Active Problems Dehydration (Acute) Multiple fractures of ribs, bilateral, initial encounter for closed fracture (Acute) - VTE Risk Labs: VTE Related Lab Results Hgb 14.5 g/dL (14.1-18.0) 12/21/21 16:51 Hct 45.1 % (42.0-52.0) 12/21/21 16:51 Plt Count 170 K/mm3 (142-424) 12/21/21 16:51 BUN 141 mg/dl (9-20) H* 12/22/21 05:37 Creatinine 3.80 mg/dl (0.66-1.25) H 12/22/21 05:37 Estimated Creat Clear 16 mL/min (50-200) 12/22/21 05:37 VTE Risk Level: Moderate Risk - Prophylaxis VTE Prophylaxis Ordered?: Yes Types of VTE Prophylaxis: TEDS Knee High Location of Applied Device: Bilateral Lower Extremeties
--- NOTE | 2021-12-22 07:44 | HMH.PHAINT ---
MEDICATION RECONCILIATION COMPLETED ON PATIENT USING EXTERNAL FILL HISTORY FROM PHARMACY. -GURINDER AGARWAL, DEXTERD
--- NOTE | 2021-12-22 08:35 | HMH.HP ---
*Admission Date: 12/21/21 *Chief complaint: Fall at home, decreased level of consciousness *History of present illness: 81-year-old white male, patient of Dr. Humberto Salvador, who has been living in [place] in his own home by himself since his in 2014. He is enjoyed very good functional status, but over the past month has become increasingly frail and slightly foggy according to his son. His son lives in [facility], and has been trying to convince his father to move to the [facility] in an assisted living facility but the father has been resistant. Unfortunately family had not heard from Mr. Romero in a couple of days and went to check on him and found him on the floor in his home in a puddle of his own stool and urine, was very obtunded and very minimally responsive. EMS brought him to the hospital. Work-up in the ER revealed that he was uremic. BUN over 140. Had rhabdomyolysis with CPK levels over thousand. Glucose levels were in the 300 range. He had several rib fractures detailed in the ER note. No other bones were fractured and no evidence of head trauma, CT scan of head was unremarkable except for age-related changes. Patient was administered IV fluids in the ER but cautiously because of a possible CHF history given the fact that he is on Lasix at home. Patient was admitted to the hospital and I rounded on him on second floor this morning. [facility] History I have reviewed the patient's past medical history: Yes Medical History: Reports:: Chronic Obstructive Pulmonary Disease (COPD), Diabetes Mellitus Type 2, Hyperlipidemia, Hypertension, Kidney Stones Denies:: Cancer, Diabetes Mellitus Type 1, Internal Pacemaker, MRSA, Seizures *Have you ever received a pneumonia vaccine?: No *Have you received a flu vaccine this season?: No Laterality Cases: Bilateral: Tonsillectomy Other Surgeries: Yes: No Previous Surgery, Cardiac Catheterization, Coronary Stent. No: Pacemaker Amputation: No Fractures: No - *Social History Smoking Status: Former smoker #Yrs smoked (if former smoker): 40 Alcohol Intake: never Substance Use Type: denies use *Occupational Status:: retired Housing: house Household Members: other *Travel in the last 8 weeks: None Family Hx:: Unable to obtain Review of Systems - Review of Systems Review of systems:: unable to obtain Meds Home Medications Medication Instructions Recorded Confirmed Type acetaminophen 300 mg-codeine 30 mg 1 tab PO Q4HP PRN tab 11/25/18 12/22/21 History tablet aspirin 81 mg tablet,delayed 81 mg PO DAILY 11/25/18 12/22/21 History release doxazosin 4 mg tablet 4 mg PO BID 11/25/18 12/22/21 History losartan 50 mg tablet 50 mg PO DAILY 11/25/18 12/22/21 History trazodone 50 mg tablet 50 mg PO HS 11/25/18 12/22/21 History Albuterol Sulfate [Albuterol 1 puff IH QIDP PRN 12/22/21 12/22/21 History Sulfate Hfa] Gabapentin 600 mg PO HS 12/22/21 12/22/21 History Gabapentin [Neurontin 300mg 300 mg PO 0900,1300 12/22/21 12/22/21 History capsule] Ipratropium/Albuterol Sulfate 3 ml IH TID 12/22/21 12/22/21 History [Duoneb 3mL neb] Metformin HCl 500 mg PO BID 12/22/21 12/22/21 History Simvastatin [Zocor 20mg] 10 mg PO HS 12/22/21 12/22/21 History glipiZIDE [Glucotrol 5mg tablet] 5 mg PO BID 12/22/21 12/22/21 History Allergies Allergy/AdvReac Type Severity Reaction Status Date / Time lisinopril Allergy NA Verified 07/28/21 11:40 Exam Vital signs and Labs for Last 24 Hours: Temp Pulse Resp BP Pulse Ox 97.8 F 91 H 20 106/61 L 92 L 12/22/21 08:00 12/22/21 08:00 12/22/21 08:00 12/22/21 08:00 12/22/21 08:00 Laboratory Results - last 24 hr 12/21/21 16:12: Urine Color Yellow, Urine Appearance Cloudy, Urine pH 5.5, Ur Specific [place] >= 1.030, Urine Protein 2+, Urine Glucose (UA) Negative, Urine Ketones Trace, Urine Blood Trace-l, Urine Nitrate Negative, Urine Bilirubin 2+ A, Urine Urobilinogen 0.2, Ur Leukocyte Esterase Neg
--- NOTE | 2021-12-22 09:03 | CA_ITS ---
APPROVED REPORT EXAM: Comprehensive 2D, Doppler, and color-flow Echocardiogram Ct Manager: Zoe Miles CRT Ht: 6 ft 0 in Wt: 173lbs BSA: 2.00 BP: 106/61 mmHg Indications: Rib FXS, Rhabdo, fell at home, COPD, Diabetes, Hyperlipidemia, Hypertension/HDD 2D Dimensions LVOT 1.79 cm (M/F) 1.5-2.5 M-Mode Dimensions RVDd 1.97 cm (0.9-2.6) LA Diam 3.06 cm (1.9-4.0) LVDd 4.78 cm (3.5-5.7) Ao Diam 4.06 cm (2.0-3.7) LVDs 2.41 cm (3.5-5.7) IVSd 1.00 cm (0.6-1.1) PWd 0.64 cm (0.6-1.1) EF (Teich) 80.80% FS 49.60% EDV (Teich) 106.50 mL TAPSE 1.79 (<1.7) ESV (Teich) 20.40 mL LV Diastology E Decel Time 167.00 (160-240 msec) E/A Ratio 0.53 MED E' 4.70 (< 7 cm/sec) MED A' 11.30 cm/s E'/MED E' Ratio 9.91 (>14) LAT E' 7.20 (<10 cm/sec) LAT A' 14.40 cm/s E/LAT E' Ratio 6.47 (>14) Aortic Valve AO Peak GR. 9.10 mmHg Mitral Valve MV E Max Gavin. 47.00 (40-130 cm/s) MV A Velocity 88.00 (40-130 cm/s) E/A Ratio 0.53 MV Decel. Time 167.00 (160-240 ms) MV PHT 49.00 ms Tricuspid Valve TR P. Velocity 442.00 cm/s RAP Estimate 10.00 mmHg RVSP 88.10 mmHg Left Ventricle Technically difficult study because of the patient factors and poor acoustic windows. Left atrium is mildly enlarged, left ventricle is normal size, mild concentric left ventricular hypertrophy, estimated ejection fraction 55% with no regional wall motion abnormality, grade 1 diastolic dysfunction seen without tissue Doppler evidence of raise left atrial pressure. Right Ventricle Right atrium and right ventricle are mildly enlarged with normal contractility. Aortic Valve Aortic valve is minimally thickened and fibrosed there is no aortic stenosis or aortic insufficiency. Mitral Valve Mitral valve is grossly normal, there is trace mitral regurgitation. Tricuspid Valve Tricuspid valve grossly normal, there is trace tricuspid regurgitation, calculated right ventricular systolic pressure 63 mmHg. Pulmonic Valve Pulmonic valve is poorly visualized. Great Vessels Aortic root is normal size. Inferior vena cava is normal size with normal inspiratory collapse. Pericardium No significant pericardial effusion noted. Conclusion 1. Mild biatrial enlargement, normal left ventricular size, mild concentric left ventricular hypertrophy, estimated ejection fraction 55% with no regional wall motion abnormality, grade 1 diastolic dysfunction seen without tissue Doppler evidence of raise left atrial pressure. 2. Mildly enlarged right ventricle with normal contractility. 3. Trace mitral and tricuspid regurgitation, calculated right ventricular systolic pressure 63 mmHg. 4. Inferior vena cava normal size with normal inspiratory collapse. Electronically signed by : Ulices Mandujano MD 12/23/2021 12:05:56
--- NOTE | 2021-12-22 09:03 | US_ITS ---
FINAL REPORT TECHNIQUE: Ultrasound images of the kidneys were obtained. CLINICAL HISTORY: elevated kidney functions, FINDINGS: US RETROPERITONEAL The right kidney measures 11.3 cm in length. It is normal in echogenicity. There is no hydronephrosis. The left kidney measures 11.2 cm in length. It is normal in echogenicity. There is no hydronephrosis. There is a 2.7 cm right renal cyst. There is a 1.9 cm left renal cyst. There is bilateral renal cortical thinning. Limited images of the liver are unremarkable. IMPRESSION: Bilateral renal cortical thinning. Bilateral renal cysts. Reviewed, Interpreted and Dictated by Chapito Suarez III, MD Transcribed by Honey Khoury Authenticated by Chapito Suarez III, MD on 12/22/2021 11:20:35 AM [facility]
--- NOTE | 2021-12-22 10:15 | DIET.NUTRFU ---
RD rounded with provider today, patient was lethargic and somewhat unresponsive. Son at bedside, he indicated patient lives alone but has been declining over past couple weeks. Not drinking enough water and feeling foggy mentally. Patient was on glipizide at home for DM. Currently not alert enough for oral intake, diabetic diet in place and anticipate assistance when able. ivF in place, waiting to review new labs today to determine kidney fxn and plan for further IVF. Will continue to follow diet tolerance and amount consumed to determine dietary needs.
[2021-12-22 12:18] LABS: POC Glucose,Bedside 236 (70-110)
[2021-12-22 14:22] LABS: Potassium 4.1 mmoL/L (3.5-5.1)
[2021-12-22 14:25] LABS: Anion Gap 13.1 mEq/L (5-15); Carbon Dioxide 23 mmol/L (22.0-30.0); Creatine Kinase 505 U/L (55-170); Creatinine Clearance Estimated 19 mL/min (50-200); Estimated Glomerular Filt Rate 19 ml/min (>60); GFR (African American) 23 ML/MIN (>60)
[2021-12-22 14:26] LABS: Calcium 8.4 mg/dl (8.4-10.2); Glucose 235 mg/dl (74-100)
[2021-12-22 14:36] LABS: Sodium 160 mmol/L (136-145)
[2021-12-22 14:37] LABS: Blood Urea Nitrogen 137 mg/dl (9-20); Chloride 128 mmol/L (98-107)
--- NOTE | 2021-12-22 17:38 | PC.NURSE ---
No acute changes noted this shift, patient remains obtunded, unable to follow commands, opens eyes to his name and responds to painful stimuli, on 2LNC, scattered bruising noted to all extemities, no BM noted this shift, FC patent and draining clear yellow urine at bedside, vss, no s/s of distress noted.
[2021-12-23] VITALS: BP 125/57; PULSE 95; RESP 24; TEMP 36.6; O2SAT 93
[2021-12-23 04:00] VITALS: BP 132/60; PULSE 103; PULSE 105; RESP 26; TEMP 37; O2SAT 93
--- NOTE | 2021-12-23 04:09 | PC.NURSE ---
Pt remains obtunded. Moans when touched. Medicated per mar. Bed bath given this shift. Turned and repositioned Q2 hr. Oral care provided. VSS. Family remains at bedside. No other concerns. Will continue to monitor.
[2021-12-23 05:00] VITALS: BMI 24.4
[2021-12-23 06:27] LABS: Basophils # 0.1 K/mm3 (0-0.2); Basophils % 0.4 % (0.1-2.0); Eosinophils % 0.1 % (0.1-12.0); Hematocrit 37.7 % (42.0-52.0); Hemoglobin 11.9 g/dL (14.1-18.0); Lymphocytes # 1.2 K/mm3 (0.7-4.5); Lymphocytes % 7.6 % (10-50); Mean Corpuscular HGB Conc 31.6 g/dL (31.8-35.4); Mean Platelet Volume 9.4 fl (7.4-10.4); Monocytes # 0.7 K/mm3 (0.1-1.0); Monocytes % 4.4 % (1.7-9.3); Neutrophils # 13.3 K/mm3 (1.8-7.8); Neutrophils % 87.5 % (37.0-80.0); Platelet Count 129 K/mm3 (142-424); Red Blood Count 3.85 M/mm3 (4.60-6.20); White Blood Count 15.2 K/mm3 (4.8-10.8)
--- NOTE | 2021-12-23 06:32 | PC.NURSE ---
notified of decline in pt's staus. BP has became soft and pt has became less responsive. Spoke with son in room, Bassam Romero. He states that his father has living will and would not want any medication to sustain his life. He would not want to go on like this . Pt's son declined pressors to sustain BP. Pt's son educated on poor prognosis.
[2021-12-23 06:37] LABS: MANUAL DIFFERENTIAL MANUAL DIFFERENTIAL (MANUAL DIFF)
[2021-12-23 06:38] LABS: Anion Gap 12.6 mEq/L (5-15); Calcium 8.1 mg/dl (8.4-10.2); Carbon Dioxide 25 mmol/L (22.0-30.0); Creatinine Clearance Estimated 24 mL/min (50-200); Estimated Glomerular Filt Rate 22 ml/min (>60); GFR (African American) 26 ML/MIN (>60); Glucose 205 mg/dl (74-100); Potassium 4.6 mmoL/L (3.5-5.1)
[2021-12-23 06:48] LABS: POC Glucose,Bedside 296 (70-110)
[2021-12-23 06:48] LABS: POC Glucose,Bedside 181 (70-110)
[2021-12-23 06:48] LABS: POC Glucose,Bedside 176 (70-110)
[2021-12-23 06:49] LABS: Sodium 163 mmol/L (136-145)
[2021-12-23 06:50] LABS: Blood Urea Nitrogen 120 mg/dl (9-20); Chloride 130 mmol/L (98-107)
--- NOTE | 2021-12-23 07:06 | XR_ITS ---
FINAL REPORT CLINICAL HISTORY: increased O2 requirement. COMPARISON: 12/21/2021 FINDINGS: The heart size is normal. The mediastinum is normal. There is bibasilar atelectasis, more evident than on prior. There are chronic changes in both lungs. There are no pleural effusions. There is no pneumothorax. There is no osseous abnormality. IMPRESSION: Bibasilar atelectasis, more evident than prior. Reviewed, Interpreted and Dictated by Jack Sommers MD Transcribed by Gordy Laguna Authenticated by Jack Sommers MD on 12/23/2021 08:07:01 AM [facility]
--- NOTE | 2021-12-23 07:08 | HMH.ACPN2 ---
Internal Medicine - PN: Subj *Date: 12/23/21 *Time: 07:08 Interval history: Critically ill 81-year-old male. Remains obtunded. Overnight his blood pressures have gradually decreased. Increased oxygen requirement. Maps have been in the mid 50-60 range with systolics in the 80s to 90s. Family at bedside. Patient is DNR. No desire to add pressors. Remains afebrile. Increased urine output. Reviewed labs from this morning. Exam Vital signs and Labs for Last 24 Hours: Temp Pulse Resp BP Pulse Ox 98.6 F 103 H 26 H 132/60 93 L 12/23/21 04:00 12/23/21 04:00 12/23/21 04:00 12/23/21 04:00 12/23/21 04:00 Laboratory Results - last 24 hr 12/22/21 05:44: POC Glucose 296 H 12/22/21 12:02: POC Glucose 236 H 12/22/21 14:08: Sodium 160 H*, Potassium 4.1, Chloride 128 H, Carbon Dioxide 23, Anion Gap 13.1, BUN 137 H*, Creatinine 3.20 H, Estimated Creat Clear 19, Estimated GFR 19 L*, Est GFR ( Amer) 23 L D, Glucose 235 H D, Calcium 8.4, Total Creatine Kinase 505 H* D 12/22/21 20:02: POC Glucose 181 H 12/23/21 05:30: WBC 15.2 H D, RBC 3.85 L, Hgb 11.9 L, Hct 37.7 L, MCV 98.0 H, MCH 31.0, MCHC 31.6 L, RDW 15.0, Plt Count 129 L, MPV 9.4, Neut % (Auto) 87.5 H, Lymph % (Auto) 7.6 L, [place] % (Auto) 4.4, Eos % (Auto) 0.1, Baso % (Auto) 0.4, Neut # (Auto) 13.3 H, Lymph # (Auto) 1.2, [place] # (Auto) 0.7, Eos # (Auto) 0.0, Baso # (Auto) 0.1 12/23/21 05:30: Sodium 163 H*, Potassium 4.6, Chloride 130 H, Carbon Dioxide 25, Anion Gap 12.6, BUN 120 H*, Creatinine 2.80 H, Estimated Creat Clear 24, Estimated GFR 22 L, Est GFR ( Amer) 26 L, Glucose 205 H, Calcium 8.1 L 12/23/21 05:33: POC Glucose 176 H I & O for Last 24 hours: Intake & Output 12/20/21 12/21/21 12/22/21 12/23/21 23:59 23:59 23:59 23:59 Intake Total 4309 / 4309 Output Total 1600 / 1600 600 / 600 Balance 2709 / 2709 -600 / -600 Weight 78.517 kg 83.642 kg Microbiology Reports for the Last 24 Hours: Microbiology 12/21/21 16:12 Urine,Clean Catch Urine Culture - Preliminary NO GROWTH AFTER 24 HOURS Narrative: - Constitutional cachectic, chronically ill appearing, obtunded - *Routine HEENT Exam Head: Present: normocephalic Eye: Present: PERRL ENT: Present: mucous membranes dry Comments: unshaven, disheveled. Edentulous - *Routine Neck Exam Present: supple. Absent: lymphadenopathy - *Routine Respiratory Exam Present: rhonchi - *Routine Cardiovascular Exam Present: RRR - *Routine Abdominal Exam Present: soft, normoactive bowel sounds, tenderness; Withdrawal to abdominal exam pain especially when palpating the left upper quadrant, no rebound or rigidity - *Routine Rectal Exam Rectal:: deferred - *Routine Genitalia Exam Castellano catheter draining yellow urine - *Routine Extremities Exam Absent: cyanosis, clubbing, edema - *Routine Skin Exam Present: warm, ecchymosis. Scattered bruising on arms, shoulder, legs. No edema, in fact his legs are very thin and his skin appears dry - *Routine Neurological Exam Present: altered mental status Assessment and Plan (1) Fall at home Status: Acute Category: Medical Code(s): W19.XXXA - Unspecified fall, initial encounter; Y92.009 - Unspecified place in unspecified non-institutional (private) residence as the place of occurrence of the external cause (2) Acute kidney injury Status: Acute Category: Medical Code(s): N17.9 - Acute kidney failure, unspecified (3) Rhabdomyolysis Status: Acute Category: Medical Code(s): M62.82 - Rhabdomyolysis (4) Mental status alteration Status: Acute Category: Medical Code(s): R41.82 - Altered mental status, unspecified (5) Dehydration Status: Acute Category: Medical Code(s): E86.0 - Dehydration (6) Multiple fractures of ribs, bilateral, initial encounter for closed fracture Status: Acute Category: Medical Code(s): S22.43XA - Multiple fractures of ribs, bilateral, initial encounter
[2021-12-23 07:16] LABS: Hypochromasia 1+; Lymphocytes % 7 % (10-50); Macrocytosis 1+; Monocytes % 4 % (2-9); Neutrophils % 89 % (42-76); Platelet Estimate Normal; Total Cells Counted 100
[2021-12-23 07:22] LABS: Lipase 453 U/L (23-300)
[2021-12-23 08:00] VITALS: BP 82/40; PULSE 98; RESP 36; TEMP 36.7; O2SAT 92
[2021-12-23 10:44] VITALS: BMI 24.4
[2021-12-23 12:00] VITALS: BP 58/32; PULSE 78; RESP 37; O2SAT 92
--- NOTE | 2021-12-23 14:11 | HMH.DEADDC ---
Discharge Sum: Prov - Provider Primary care physician: Humberto Salvador Visit Care Team Role Provider Type Humberto Salvador Primary Care Provider Staff Physician Richard Boyd MD Emergency Provider ER Physician Deric Turk MD Admit Provider Staff Physician Attending Provider Admitting clinician: Aditya Prado Attending physician on admission: Deric Turk Pronouncing clinician: Aditya Prado Discharge Sum: Diag - PCOD Cause of : Cardiac arrest Discharge Sum: Summary - Date and Time Date of admission: 12/21/21 21:36 Date of : 12/23/21 Time of : 14:00 - Hospital Course prior to Hospital Course Information: Mr. Paige is an 81-year-old critically ill male who was found down at home. Has remained obtunded during admission. Overnight his blood pressures gradually decreased with increased oxygen requirement. Mean arterial pressure dropped to the 50s 60 range with systolics in the 80s and 90s. Family is at bedside and wanted to honor the patient's wishes of DNR status. Discussed potential benefit of pressors, decision made not to escalate care. Labs on morning of showed worsening electrolyte abnormalities with increasing hypernatremia, continued renal failure, and severely elevated BUN. Patient's condition gradually declined through the course of the day before going into PEA arrest and eventual asystole. Son at bedside with patient through his course. Hospital course as follows: 1. Fall at home-rib fractures -pain treated with morphine. Patient kept comfortable. 2. Obtundation/confusion -multifactorial etiology-rhabdomyolysis versus uremia versus possible cerebral vascular disease. -Did not show significant clinical support to fluid resuscitation. Became unresponsive to external stimuli but never regained meaningful consciousness. 3. Acute on chronic kidney injury -Baseline creatinine below 2, elevated to well above 3 with BUN well above 100. Likely the source for his obtundation. Slight improvement in creatinine with fluid resuscitation but no improvement in mentation. Had some increased urine output but no meaningful recovery. 4. Cardiac history -received a stent in [place] several years ago. Held cardiac medications during hospitalization. Echocardiogram obtained showing hyperdynamic left ventricle justifying increased fluid resuscitation. 5. CT scan of head with chronic changes and history of lacunar infarcts but no acute ischemic or hemorrhagic findings. Given failure to respond to fluid resuscitation, desire to not escalate care, patient kept comfortable and transition to palliative care several hours before . Cell Inspector contacted by family, able to come and be at bedside and prayed with patient and family prior to - Additional Data Confirmation of as documented by pronouncing clinician: no pulse Family: at bedside Additional persons at bedside: bar hostess (earlier in day) Attending/PCP notified?: Yes Attending physician: Deric Turk MD Was code activated?: No Autopsy requested?: No licensing registration examiner notified?: Yes Organ bank notified?: Yes Advance directives: Yes Hospice patient?: No
--- NOTE | 2021-12-23 14:19 | PC.NURSE ---
1336- notified that patients HR is beginning to decline, unable to obtain BP, breathing has changed, and family has requested to turn off IVF, morphine has been given to patient for comfort. 1400- Patient at this time, Dr Prado at bedside to pronounce 1412- [facility] contacted at this time, spoke with Carole Rivera, ruled out for donation, case # [id number]
== END 2021-12-23 15:30 | disposition expired | DRG 683 ==
LOC: ER 20:18 → 2ND 12-22 00:36
PROVIDERS: Internal Medicine Adolescent Medicine; Admitting Provider Internal Medicine Adolescent Medicine; Emergency Provider Emergency Medicine; PCP Internal Medicine; Visit Provider Internal Medicine Adolescent Medicine
DX: N17.9 Acute kidney failure, unspecified (principal); S22.41XA Multiple fractures of ribs, right side, initial encounter for closed fracture; M62.82 Rhabdomyolysis; E86.0 Dehydration; E78.5 Hyperlipidemia, unspecified; Z87.442 Personal history of urinary calculi; Z95.5 Presence of coronary angioplasty implant and graft; W19.XXXA Unspecified fall, initial encounter; E11.22 Type 2 diabetes mellitus with diabetic chronic kidney disease; N18.9 Chronic kidney disease, unspecified; Z20.822 Contact with and (suspected) exposure to COVID-19
CPT/HCPCS: 36415; 51702; 70450; 71045; 71250; 72125; 72128; 72131; 72170; 73060; 74176; 76770; 80048; 80053; 81001; 82550; 82962; 83605; 83690; 84484; 85007; 85025; 87040; 87086; 93005; 93306; 99285; C9803; J0696; U0003; U0005